=== PATIENT | male | born 1955 | race African-American/Black ===

== ENCOUNTER 2017-02-05 09:26 | Emergency (ER) | payer SELFPAY ==
[~2017-02-05] VITALS: Ht 170.2 cm; Wt 90.6 kg
[2017-02-05 09:32] VITALS: Ht 170.2 cm; Wt 90.6 kg
== END 2017-02-05 10:26 | disposition left against medical advice (07) ==
LOC: E/R 09:26
DX: Z53.21 Procedure and treatment not carried out due to patient leaving prior to being seen by health care provider (principal)

== ENCOUNTER 2017-02-18 09:56 | Inpatient (IN) | END 2017-02-22 19:01 | disposition home health service (06) | DRG 280 ==

== ENCOUNTER 2017-02-26 01:21 | Inpatient (IN) | END 2017-03-01 14:41 | disposition home or self-care (01) | DRG 291 ==

== ENCOUNTER 2017-08-11 09:40 | Emergency (ER) | END 2017-08-11 13:38 | disposition home or self-care (01) ==

== ENCOUNTER 2018-06-26 18:50 | Inpatient (IN) | payer OTHER, MEDICAID ==
[~2018-06-26] VITALS: Ht 177.8 cm; Wt 99.0 kg
[~2018-06-26 18:50] MED LIST: ALBU18HF INHALATION; AMLO5TAB4 PO; ATOR10TA65 PO; ATOR40TA68 PO; BENA10TA4 PO; DOCU100T PO; DOXA4TAB3 PO; FAMO-96 PO; FENO54TA7 PO; FINA5TAB4 PO; FLUT16SP17 NASAL; FURO40TA4 PO; GABA300S PO; GLIM2TAB PO; HYDR-3601 PO; HYDR-3672 PO; IPRA3AMP29 HHN; LATA2.5D2 BOTH EYES; LEVO500T48 PO; LORA10TA3 PO; LORA1TAB PO; MECL-77 PO; METO-319 PO; NITR0.4T39 SL; PARO-2 PO; PRED20TA PO; TAMS-14 PO; TRAZ150T65 PO
[2018-06-26 19:00] VITALS: Ht 177.8 cm; Wt 99.0 kg
--- NOTE | 2018-06-26 19:23 | ERD ---
ER Documentation Chief Complaint Chief Complaint PT BIB RA FOR EVAL OF DIFFICULTY SPEAKING. LWKT 1400. HX OF CVA W RT WKNESS HPI This is a 62-year-old male who presents with dysarthria since about 2 PM this afternoon. He has a history of prior stroke, which affected his right upper extremity, and resulted in speech changes. His primary concern today was his dysarthria, he has not had any chest pain or shortness of breath, no other neurologic deficit that he has noted, no fever. ROS All systems reviewed and are negative except as per history of present illness. Medications Home Meds Reported Medications Trazodone Hcl* (Trazodone Hcl*) 100 Mg Tablet, 100 MG PO QHS PRN for NEEDED, #30 TAB 06/26/18 Paroxetine Hcl* (Paxil*) 20 Mg Tablet, 20 MG PO DAILY, TAB 06/26/18 Nitroglycerin* (Nitroglycerin* SL) 0.4 Mg Tab.subl, 0.4 MG SL Q5MIN PRN for CHEST PAIN, BOTTLE 06/26/18 Metformin Hcl* (Metformin Hcl*) 500 Mg Tablet, 500 MG PO WITH BREAKFAST DINNE, #60 TAB 06/26/18 Lorazepam* (Lorazepam*) 1 Mg Tablet, 1 MG PO HS PRN for NEEDED, #30 TAB 06/26/18 Loratadine* (Loratadine*) 10 Mg Tablet, 10 MG PO DAILY, #30 TAB 06/26/18 Furosemide* (Furosemide*) 40 Mg Tablet, 40 MG PO DAILY, TAB 06/26/18 Hydralazine Hcl* (Hydralazine Hcl*) 25 Mg Tab, 25 MG PO Q8, #90 TAB 06/26/18 Gabapentin* (Gabapentin*) 300 Mg Capsule, 300 MG PO TID, #90 CAP 06/26/18 Tamsulosin Hcl* (Flomax*) 0.4 Mg Cap.er.24h, 0.4 MG PO HS, CAP 06/26/18 Doxazosin Mesylate* (Doxazosin Mesylate*) 8 Mg Tablet, 8 MG PO HS, TAB 06/26/18 Carvedilol* (Carvedilol*) 25 Mg Tablet, 25 MG PO BID, #60 TAB 06/26/18 Benazepril Hcl* (Benazepril Hcl*) 20 Mg Tablet, 20 MG PO BID, #60 TAB 5/8/19 Atorvastatin Calcium (Atorvastatin Calcium) 10 Mg Tablet, 10 MG PO QHS, #30 TAB 06/26/18 Aspirin* (Aspirin* EC) 81 Mg Tablet.dr, 81 MG PO DAILY, TAB 06/26/18 Amlodipine Besylate* (Amlodipine Besylate*) 10 Mg Tablet, 10 MG PO DAILY, #30 TAB 06/26/18 Ipratropium-Albuterol (Ipratropium-Albuterol) 0.5-3 Mg/3 Ml Ampul.neb, 3 ML INHALATION Q6, #30 VIAL 06/26/18 Discontinued Reported Medications Doxazosin Mesylate* (Doxazosin Mesylate*) 4 Mg Tablet, 4 MG PO HS, TAB 02/26/17 Benazepril Hcl* (Benazepril Hcl*) 10 Mg Tablet, 10 MG PO DAILY, #30 TAB 02/26/17 Amlodipine Besylate* (Norvasc*) 5 Mg Tablet, 5 MG PO BID, TAB 02/26/17 Atorvastatin Calcium (Atorvastatin Calcium) 10 Mg Tablet, 10 MG PO QHS, #30 TAB 02/26/17 Albuterol Sulfate* (Ventolin HFA*) 18 Gm Hfa.aer.ad, 2 PUFF INHALATION Q6H PRN for WHEEZING AND SOB, #1 INHALER 02/18/17 Trazodone Hcl* (Trazodone Hcl*) 150 Mg Tablet, 150 MG PO QHS, #30 TAB 02/18/17 Tamsulosin Hcl* (Flomax*) 0.4 Mg Cap.er.24h, 0.4 MG PO HS, CAP 02/18/17 Paroxetine Hcl* (Paxil*) 20 Mg Tablet, 20 MG PO DAILY, TAB 02/18/17 Loratadine* (Loratadine*) 10 Mg Tablet, 10 MG PO DAILY, #30 TAB 02/18/17 Latanoprost (Latanoprost) 2.5 Ml Drops, 1 DROP BOTH EYES QHS, #1 BOTTLE 02/18/17 Glimepiride* (Glimepiride*) 2 Mg Tablet, 2 MG PO WITH BREAKFAST DINNE, TAB 02/18/17 Fluticasone Propionate* (Fluticasone Propionate* Nasal) 50 Mcg/[place] - 16 Gm [place].susp, 2 SPRAYS NASAL DAILY, #1 BOTTLE TO EACH NOSTRIL 02/18/17 Finasteride* (Finasteride*) 5 Mg Tablet, 5 MG PO QHS, TAB 08/15/16 Fenofibrate, Micronized (Fenofibrate) 54 Mg Tablet, 54 MG PO DAILY, TAB 08/15/16 Docusate Sodium* (Dok*) 100 Mg Tablet, 100 MG PO DAILY, #30 CAP 08/15/16 Meclizine Hcl* (Meclizine Hcl*) 25 Mg Tablet, 25 MG PO DAILY PRN for DIZZINESS, TAB 08/15/16 Discontinued Scripts Levofloxacin* (Levaquin*) 500 Mg Tablet, 500 MG PO DAILY@06 for 10 Days, TAB Prov:LETY SANTANA MD 10/29/17 Prednisone* (Prednisone*) 20 Mg Tab, 20 MG PO DAILY for 10 Days, TAB Prov:LETY SANTANA MD 10/29/17 Famotidine* (Pepcid*) 20 Mg Tablet, 20 MG PO BID, #60 TAB Prov:FARHANA BROWN MD 03/01/17 Hydrocodone Bit-Acetaminophen (Hydrocodone Bit-APAP) 5-325MG Tablet, 1 TAB PO Q6H PRN for MODERATE PAIN LEVEL 4-6 for 7 Days, TAB Prov:FARHANA BROWN MD 03/01/17 Hydralazine Hcl* (Apresoline*) 50 Mg Tab, 100 MG PO Q8 for 28 Days, TAB Prov:FARHANA BROWN MD 03/01/17 Ipratropium-Albuterol (Ipratropium-Albuterol) 0.5-3 Mg/3 Ml Ampul.neb, 3 ML HHN Q6H RESP THERAPY PRN for SHORTNESS OF BREATH for 28 Days Prov:FARHANA BROWN MD 03/01/17 Lorazepam* (Lorazepam*) 1 Mg Tablet, 1 MG PO DAILY PRN for ANXIETY for 14 Days, #30 TAB Prov:FARHANA BROWN MD 03/01/17 Furosemide (Lasix) 40 Mg Tab, 40 MG PO DAILY for 30 Days, TAB Prov:FARHANA BROWN MD 03/01/17 Gabapentin (GABAPENTIN) 300 Mg/6 Ml Solution, 300 MG PO TID for 30 Days Prov:LETY SANTANA MD 02/22/17 Metoprolol Succinate* (Toprol XL*) 50 Mg Tab.er.24h, 50 MG PO DAILY for 30 Days Prov:LETY SANTANA MD 02/22/17 Atorvastatin* (Atorvastatin*) 40 Mg Tablet, 40 MG PO HS for 30 Days, TAB Prov:LETY SANTANA MD 02/22/17 Nitroglycerin* (Nitrostat*) 0.4 Mg Tab.subl, 1 TAB SL Q5M PRN for ANGINA for 28 Days Prov:FARHANA BROWN MD 08/20/16 Allergies Allergies: Coded Allergies: No Known Drug Allergies (Unverified Allergy, Unknown, 06/26/18) PMhx/Soc History of Surgery: No Anesthesia Reaction: No Hx Neurological Disorder: Yes (Stroke) Hx Respiratory Disorders: Yes (COPD, KAYKAY) Hx Cardiac Disorders: Yes (HTN, HLD, CHF, ) Hx Psychiatric Problems: Yes (Anxiety) Hx Miscellaneous Medical Probl: No Hx Alcohol Use: No Hx Substance Use: No Hx Tobacco Use: Yes Smoking Status: Former smoker Physical Exam Vitals Vital Signs Date Temp Pulse Resp B/P (MAP) Pulse Ox O2 O2 Flow FiO2 Time Delivery Rate 06/26/18 78 20 118/78 99 Nasal 2.0 22:11 (91) Cannula 06/26/18 70 19 154/94 98 Nasal 2.0 20:02 (114) Cannula 06/26/18 Nasal 2 19:38 Cannula 06/26/18 Nasal 2.0 19:08 Cannula 06/26/18 96.9 76 18 154/70 97 19:00 (98) Physical Exam Const: Patient appears acutely distressed, is awake and alert Head: Atraumatic Eyes: Normal Conjunctiva ENT: Normal External Ears, Nose and Mouth. Neck: Full range of motion. No meningismus. Resp: Clear to auscultation bilaterally Cardio: Regular rate and rhythm, no murmurs Abd: Soft, non tender, non distended. Normal bowel sounds Skin: No petechiae or rashes Back: No midline or flank tenderness Ext: No cyanosis, or edema Neur: Speech is slurred, his right upper extremity is held in a flexed position, he has equal bilateral strength in his lower extremities, sensation is intact to light touch distally, over his left upper extremity as well as his lower extremities. Psych: Normal Mood and Affect Result Diagram: 06/26/18185306/26/181853 Results 24 hrs Laboratory Tests Test 06/26/18 18:54 06/26/18 19:43 06/26/18 22:57 White Blood Count 5.1 10^3/ul Red Blood Count 3.64 10^6/ul Hemoglobin 10.1 g/dl Hematocrit 31.9 % Mean Corpuscular Volume 87.6 fl Mean Corpuscular Hemoglobin 27.7 pg Mean Corpuscular 31.7 g/dl Hemoglobin Concent Red Cell Distribution Width 14.2 % Platelet Count 220 10^3/UL Mean Platelet Volume 12.0 fl Immature Granulocytes % 0.200 % Neutrophils % 65.1 % Lymphocytes % 18.2 % Monocytes % 12.0 % Eosinophils % 4.1 % Basophils % 0.4 % Nucleated Red Blood Cells % 0.4 /100WBC Immature Granulocytes # 0.010 10^3/ul Neutrophils # 3.3 10^3/ul Lymphocytes # 0.9 10^3/ul Monocytes # 0.6 10^3/ul Eosinophils # 0.2 10^3/ul Basophils # 0.0 10^3/ul Nucleated Red Blood Cells # 0.0 10^3/ul Prothrombin Time 13.3 Sec Prothrombin Time Ratio 1.0 INR International 1.00 Normalized Ratio Activated Partial Thromboplast 36.2 Sec Time Sodium Level 142 mmol/L Potassium Level 3.3 mmol/L Chloride Level 104 mmol/L Carbon Dioxide Level 31 mmol/L Anion Gap 7 Blood Urea Nitrogen 13 mg/dl Creatinine 1.29 mg/dl Est Glomerular Filtrat > 60 mL/min Rate mL/min Glucose Level 229 mg/dl Bedside Glucose 243 mg/dL Hemoglobin A1c 5.7 % Calcium Level 9.0 mg/dl Creatine Kinase 77 IU/L 71 IU/L Creatine Kinase Index 1.5 1.6 Creatinine Kinase MB (Mass) 1.16 ng/ml 1.14 ng/ml Troponin I 0.014 ng/ml 0.014 ng/ml Triglycerides Level 99 mg/dl Cholesterol Level 126 mg/dl LDL Cholesterol, Calculated 69 mg/dl HDL Cholesterol 37 mg/dl Cholesterol/HDL Ratio 3.4 RATIO Ethyl Alcohol Level < 10.0 mg/dl Urine Color STRAW Urine Clarity CLEAR Urine pH 6.0 Urine Specific [place] 1.029 Urine Ketones NEGATIVE mg/dL Urine Nitrite NEGATIVE mg/dL Urine Bilirubin NEGATIVE mg/dL Urine Urobilinogen NEGATIVE mg/dL Urine Leukocyte Esterase NEGATIVE Basilio/ul Urine Hemoglobin NEGATIVE mg/dL Urine Glucose 2+ mg/dL Urine Total Protein NEGATIVE mg/dl Urine Opiates Screen Negative Urine Barbiturates Negative Urine Amphetamines Screen Negative Urine Benzodiazepines Screen Negative Urine Cocaine Screen Negative Urine Cannabinoids Negative Current Medications Medications Dose Sig/Alicia Start Time Status Last (Trade) Ordered Route PRN Stop Time Admin Dose Reason Admin Amlodipine 10 mg DAILY PO 06/27/18 Besylate 09:00 (Norvasc) Aspirin 81 mg DAILY PO 06/27/18 (Halfprin) 09:00 10 mg QHS PO 06/27/18 Atorvastatin 21:00 Calcium (Lipitor) Benazepril 20 mg BID PO 06/27/18 HCl 09:00 (Lotensin) Carvedilol 25 mg BID PO 06/27/18 (Coreg) 09:00 Doxazosin 8 mg HS PO 06/27/18 Mesylate 21:00 (Cardura) Furosemide 40 mg DAILY PO 06/27/18 (Lasix) 09:00 Gabapentin 300 mg TID PO 06/27/18 (Neurontin) 09:00 Hydralazine 25 mg Q8 PO 06/27/18 HCl 06:00 (Apresoline) Albuterol/ 3 ml Q6H RESP 06/27/18 Ipratropium THERAPY INH 02:00 (Duoneb) Loratadine 10 mg DAILY PO 06/27/18 (Claritin) 09:00 Lorazepam 1 mg HS PRN PO 06/26/18 (Ativan) NEEDED 22:30 Metformin 500 mg WITH 06/27/18 HCl BREAKFAST 08:00 (Glucophage) DINNE PO 0.4 tab [id number] 06/26/18 Nitroglycerin PRN SL 22:30 CHEST PAIN (Nitroglyceri n (Sl Tab) 0.4 Mg) Paroxetine 20 mg DAILY PO 06/27/18 HCl (Paxil) 09:00 Tamsulosin 0.4 mg HS PO 06/27/18 HCl 21:00 (Flomax) Trazodone 100 mg QHS PRN 06/26/18 HCl PO NEEDED 22:30 (Desyrel) Potassium 1,000 ml @ Q24H IV 06/26/18 Chloride/Dext 40 mls/hr 22:34 stuart/ Sod Cl IV Flush 3 ml PER 06/26/18 (NS 3 ml) PROTOCOL IV 23:00 Ondansetron 4 mg Q6H PRN 06/26/18 HCl (Zofran IV 23:00 Inj) NAUSEA/VOMITI NG 650 mg Q6H PRN 06/26/18 Acetaminophen PO .PAIN 1-3 23:00 (Tylenol OR TEMP Tab) 650 mg Q6H PRN 06/26/18 Acetaminophen SC .PAIN 1-3 23:00 (Tylenol OR TEMP Supp) Docusate 100 mg Q12H PRN 06/26/18 Sodium PO 23:00 (Colace) .CONSTIPATION Magnesium 30 ml DAILY PRN 06/26/18 Hydroxide PO 23:00 (Milk Of Mag) .CONSTIPATION Bisacodyl 5 mg DAILY PRN 06/26/18 (Dulcolax) PO 23:00 .CONSTIPATION 40 mg DAILY@06 06/27/18 Pantoprazole IV 06:00 (Protonix Iv) Procedures/MDM This is a 62-year-old male who presents for evaluation of increased right upper extremity weakness, as well as slurred speech. Patient's last well-known time was about 2 PM, this he presented about 4 hours and 50 minutes after onset of symptoms. Code stroke was called immediately upon arrival. 7:20 PM: Spoke with tele-stroke, patient would not be an IV TPA candidate given timing, his CTA is currently pending. 8 PM: Patient CT brain, showed decreased density over the right temporal lobe, CTA did not show any acute findings. Tele-stroke recommendation was for admission with MRI and stroke work-up. Patient symptoms appear stable, at this time, and his labs are otherwise overall unremarkable. He had no evidence of infection, and did not complain of any pain. He will be admitted to telemetry Accepting Care Team: Current data and ongoing care discussed. Primary: Josiah Consulting: Telestroke Outstanding Data: none Critical Care Time: 35 minutes Treatments/Evaluations: Close monitoring and treatment of unstable vital signs, cardiorespiratory, and neurologic status, while maintaining tight balance of fluid, respiratory, and cardiac interventions. This time includes discussing the case with the patient and the patient's family. This time does not include all procedures stated elsewhere in this record. This time also includes reviewing ol d records, labs and radiological studies. This time includes examining and re- examining the patient. Additionally, this time also includes arranging care with admitting and consulting physicians. Departure Diagnosis: Primary Impression: Acute weakness Additional Impression: Dysarthria Condition: Stable ALEXA LE MD June 26, 2018 19:23
--- NOTE | 2018-06-26 19:35 | STROKE ---
Date/Time of Note Date/Time of Note DATE: 06/26/18 TIME: 19:34 Patient Information General Patient location: emergency Arrival Date Age 62 Gender male Weight 99 kg POC Glucose Glucose Result Bedside Glucose - 72 Hours Test 06/26/18 18:54 Bedside Glucose 243 mg/dL (70-220) H Vital Signs Vital Signs Vital Signs Date Temp Pulse Resp B/P (MAP) Pulse Ox O2 O2 Flow FiO2 Time Delivery Rate 06/26/18 96.9 76 18 154/70 97 19:00 (98) Patient History Current Medications Allergies: Coded Allergies: No Known Drug Allergies (Unverified Allergy, Unknown, 10/25/17) Labs Coagulation Labs: Coagulation Test 06/26/18 18:54 Activated Partial Thromboplast Time 36.2 Sec (23.0-35.0) History & Physical History of Present Illness 62 M PMH stroke with residual right hemiparesis LKW 1400 PST with slurred speech NIH Stroke Scale NIH Stroke Scale [id number] Total Score: [id number] Date/Time Recorded DATE: 06/26/18 TIME: 19:34 Submitted By Albert Stoll t-PA Imaging Review Date/Time Imaging Reviewed DATE: 06/26/18 TIME: 19:34 t-PA Administration Recommendation: No Weight 99 kg Recommedation submitted by Albert Stoll Reason t-PA not Recommended Not in time window Recommendations Recommendation 62 M with chronic right hemiparesis from prior stroke and new dysarthria today as well as reported new right hemianesthesia. Not in tPA window. No new LVO suspected but CTA pending already. NCHCT read by local Radiology as right temporal hypodensity of unknown chronicity, possible new stroke. - F/u pending CTA read - MRI Brain to rule-out new stroke in setting of right temporal hypodensity of unknown chronicity - If new stroke on MRI Brain needs full stroke studies: TTE with bubble, blood cultures, telemetry, EKG, LDL, A1c, SP, PT, OT. Further testing per these initial results/evaluations. - Perform bedside swallow testing in ED and load with Plavix 600 mg PO if passes. Would continue ASA at 81 mg PO QD and Plavix at 75 mg PO QD starting tomorrow. Duration of dual-antiplatelet therapy per local Neurology team - Frequent neuro checks per protocol - Strict normonatremia, normothermia, normoglycemia - Permissive SBP to 180 for first 24 hours during stroke work-up - Please consult local Neurologist to guide further recs ALBERT STOLL MD June 26, 2018 19:35
[2018-06-26] MEDS ORDERED: IPRA3AMP29 INHALATION (19:51)
[2018-06-26] MEDS ORDERED: AMLO-147 PO (19:51)
[2018-06-26] MEDS ORDERED: ASPI-817 PO (19:52)
[2018-06-26] MEDS ORDERED: ATOR10TA65 PO (19:53)
[2018-06-26] MEDS ORDERED: BENA20TA4 PO (19:54)
[2018-06-26] MEDS ORDERED: CARV25TA79 PO (19:54)
[2018-06-26] MEDS ORDERED: GABA300C16 PO (19:55)
[2018-06-26] MEDS ORDERED: DOXA8TAB65 PO (19:55)
[2018-06-26] MEDS ORDERED: TAMS-14 PO (19:55)
[2018-06-26] MEDS ORDERED: HYDR-3671 PO (19:56)
[2018-06-26] MEDS ORDERED: FURO40TA4 PO (19:56)
[2018-06-26] MEDS ORDERED: LORA10TA3 PO (19:56)
[2018-06-26] MEDS ORDERED: LORA1TAB PO (19:57)
[2018-06-26] MEDS ORDERED: METF500T24 PO (19:58)
[2018-06-26] MEDS ORDERED: NITR0.4T32 SL (19:58)
[2018-06-26] MEDS ORDERED: PARO-2 PO (19:58)
[2018-06-26] MEDS ORDERED: TRA100 PO (19:59)
[2018-06-26] MEDS ORDERED: LORAZEPAM 1 MG TAB PO PRN (22:30)
[2018-06-26] MEDS ORDERED: NITROGLYCERIN (SL) 0.4 MG TAB SL PRN (22:30)
[2018-06-26] MEDS ORDERED: BISACODYL (EC) 5 MG TAB PO PRN (23:00)
[2018-06-26] MEDS ORDERED: ACETAMINOPHEN 650 MG SUPP PR PRN (23:00)
[2018-06-26] MEDS ORDERED: ACETAMINOPHEN 325 MG TAB PO PRN (23:00)
[2018-06-26] MEDS ORDERED: NACL 0.9% 3 ML SYG IV SCH (23:00)
[2018-06-26] MEDS ORDERED: ONDANSETRON 4 MG INJ IV PRN (23:00)
[2018-06-26] MEDS ORDERED: MAGNESIUM HYDROXIDE 30ML CUP PO PRN (23:00)
[2018-06-26] MEDS ORDERED: DOCUSATE SODIUM 100 MG CAP PO PRN (23:00)
[2018-06-27] VITALS (12 sets, daily range): BP systolic 123–164; BP diastolic 74–80; PULSE 43–74; RESP 18–22
[2018-06-27] MEDS: ALBUTEROL/IPRATROPIUM (NEB) 3 ML AMP INH SCH ×4 (03:52→19:13)
[2018-06-27] MEDS ORDERED: PANTOPRAZOLE 40 MG INJ IV SCH (06:00)
[2018-06-27] MEDS: D5W-0.45 NACL + KCL 20 MEQ 1,000 ML IV SCH ×2 (06:23→22:34)
[2018-06-27] MEDS ORDERED: metFORMIN 500 MG TAB PO SCH (08:00)
[2018-06-27] MEDS: ASPIRIN (EC) 81 MG TAB PO SCH (09:44)
[2018-06-27] MEDS: AMLODIPINE 10 MG TAB PO SCH (09:44)
[2018-06-27] MEDS: BENAZEPRIL 20 MG TAB PO SCH ×2 (09:45→20:46)
[2018-06-27] MEDS: LORATADINE 10 MG TAB PO SCH (09:45)
[2018-06-27] MEDS: FUROSEMIDE 40 MG TAB PO SCH (09:45)
[2018-06-27] MEDS: GABAPENTIN 300 MG CAP PO SCH ×3 (09:45→20:46)
[2018-06-27] MEDS: PAROXETINE 20 MG TAB PO SCH (09:45)
--- NOTE | 2018-06-27 14:35 | QN ---
Documentation Comment pt seen and examined LETY SANTANA MD June 27, 2018 14:35
[2018-06-27] MEDS ORDERED: POLYETHYLENE GLYCOL 17 GM PACKET PO PRN (15:00)
[2018-06-27] MEDS: DOCUSATE SODIUM 100 MG CAP PO SCH ×2 (15:03→20:47)
--- NOTE | 2018-06-27 15:56 | CONS ---
Assessment/Plan Assessment/Plan Hospital Course 62 yo M with multiple cerebrovascular risk factors who presents for evaluation of dysarthria x 1 day... for which neurology is consulted. CTH is most notable for an age indeterminate R temporal lobe infarct as well as chronic BL basal ganglia and thalamic lacunar infarcts. CTA H/N is notable for generalized intracranial atherosclerosis LDL 78 UDS negative P: Await MRI brain for further characterization ASA/Lipitor for secondary stroke prevention Await echo Add ESR, RPR BP and other medical management per primary PT/OT/ST as necessary Will follow clinically, to recommend neurologic studies, as necessary Consultation Date/Type/Reason Admit Date/Time June 26, 2018 at 20:19 Type of Consult Neurology Reason for Consultation slurred speech/ R hemiparesis Requesting Provider: LETY SANTANA MD Date/Time of Note DATE: 06/27/18 TIME: 15:56 Hx of Present Illness 62 yo M with hx of CVA, HTN, DM, and multiple other comorbidities who presented to the ED for evaluation of slurred speech. History was obtained from pt and chart review. The pt endorses difficulty speaking, headache and dizziness. Denies new weakness or other focal sx at this time. It is elsewhere noted: REASON FOR ADMISSION: Slurred speech and falling back. HISTORY OF PRESENTING ILLNESS: This is a 62-year-old male with a past medical history of COPD, CHF, hypertension, diastolic dysfunction, hyperlipidemia, diabetes, glaucoma, history of multiple admissions in the past secondary to COPD, history of strokes x2, presented to the emergency department after he called the paramedics as he was noted to have slurred speech. According to the patient, he has history of prior stroke. He has some residual weakness in the right upper and lower extremity. For the past 1 week, he has noted that every time he was trying to get up, he was falling backward. Yesterday, he tried to do the same thing and then he fell back. His daughter checked up on him and by the time she came to see him, he already called paramedics. According to the patient, he has noticed that he started having slurred speech around 2:00 p.m. and came to the emergency department. The patient was having some weakness of the right arm and leg. According to the patient, he has been only taking aspirin every other day due to his nosebleeds. On arrival to ED, temperature was 96.9, pulse 76, respirations 18, blood pressure 154/70. Potassium of 3.3, BUN of 13, creatinine 1.29, hemoglobin 10.1, white blood cell count 5.1, platelet count 220. Since the patient came 4 hours late, he was not considered TPA candidate. The patient had CT of the head that showed possible acute subacute infarcts in the anterior right temporal lobe, chronic bilateral cerebral microvascular ischemic diseases, old bilateral anterior basal ganglia, bilateral thalamus lacunar infarcts. The patient also had a CT angio that s howed no CT evidence of aneurysm, dissection or flow limiting stenosis, moderate bilateral cavernous and supraclinoid ICA narrowing, focal stenosis of right and left intracranial vertebral arteries, more proximal right cervical ICA narrowing, large heterogeneous hypodense nodule measuring at 3 cm. The patient also had a chest x-ray that showed cardiomegaly and mild pulmonary congestion and the patient was admitted for further management. negative unless noted otherwise in HPI Exam/Review of Systems Exam Vitals Vital Signs Date Temp Pulse Resp B/P (MAP) Pulse Ox O2 O2 Flow FiO2 Time Delivery Rate 06/27/18 61 15 99 Nasal 14:24 Cannula 06/27/18 0.0 14:21 06/27/18 98.3 150/74 11:26 (99) Exam PE: Gen Appearance: No Apparent Distress HEENT: Normocephalic Cardiovascular: Regular rate Lungs: Clear bilaterally Abdomen: Soft Extremities: Dry NE: The patient was alert and oriented. Speech was dysarthric. Language was normal. Fund of knowledge was normal. Pupils were equal and reactive to light. There was no afferent pupillary defect. Visual gomez were full. Funduscopic examination was limited. Extra-ocular movements were full. Ptosis was absent. There was no nystagmus. Facial sensation was normal. Face was symmetric with normal strength. Hearing was intact. Palate movements were normal. Neck strength was normal. There was normal tongue bulk and speed of movement. Tone was normal. Muscle bulk was normal. I did not see fasciculations. Arms and legs were mildly weak on the R. Vibration sensation was diminished on the R. Temperature and pinprick sensation was normal. Rapid alternating movements were normal. There was no dysmetria. There was no intention tremor. Gait was deferred due to bedrest. Arm and leg reflexes were 2+ and symmetric. Jones's sign was absent. Plantar responses were flexor. Results Result Diagram: 06/27/18 0518 06/27/18 0518 Results 24hrs Laboratory Tests Test 06/26/18 18:54 06/26/18 19:43 06/26/18 22:57 06/27/18 05:18 White Blood Count 5.1 # 5.0 Red Blood Count 3.64 L 3.71 L Hemoglobin 10.1 L 10.2 L Hematocrit 31.9 L 32.4 L Mean Corpuscular Volume 87.6 87.3 Mean Corpuscular 27.7 L 27.5 L Hemoglobin Mean Corpuscular 31.7 L 31.5 L Hemoglobin Concent Red Cell Distribution 14.2 14.3 Width Platelet Count 220 212 Mean Platelet Volume 12.0 H 11.6 H Immature Granulocytes % 0.200 0.400 Neutrophils % 65.1 63.0 Lymphocytes % 18.2 18.3 Monocytes % 12.0 H 13.1 H Eosinophils % 4.1 4.8 Basophils % 0.4 0.4 Nucleated Red Blood 0.4 H 0.0 Cells % Immature Granulocytes # 0.010 0.020 Neutrophils # 3.3 3.1 Lymphocytes # 0.9 0.9 Monocytes # 0.6 0.7 Eosinophils # 0.2 0.2 Basophils # 0.0 0.0 Nucleated Red Blood 0.0 0.0 Cells # Prothrombin Time 13.3 Prothrombin Time Ratio 1.0 INR International 1.00 Normalized Ratio Activated 36.2 H Partial Thromboplast Time Sodium Level 142 146 H Potassium Level 3.3 L 3.6 Chloride Level 104 107 Carbon Dioxide Level 31 33 H Anion Gap 7 6 Blood Urea Nitrogen 13 13 Creatinine 1.29 H 1.30 H Est Glomerular Filtrat > 60 > 60 Rate mL/min Glucose Level 229 H 74 # Bedside Glucose 243 H Hemoglobin A1c 5.7 Calcium Level 9.0 9.2 Creatine Kinase 77 71 66 Creatine Kinase Index 1.5 1.6 1.5 Creatinine Kinase MB 1.16 1.14 1.00 (Mass) Troponin I 0.014 0.014 0.017 Triglycerides Level 99 55 Cholesterol Level 126 125 LDL Cholesterol, 69 78 Calculated HDL Cholesterol 37 36 Cholesterol/HDL Ratio 3.4 3.4 Ethyl Alcohol Level < 10.0 H Urine Color STRAW Urine Clarity CLEAR Urine pH 6.0 Urine Specific Enochs 1.029 Urine Ketones NEGATIVE Urine Nitrite NEGATIVE Urine Bilirubin NEGATIVE Urine Urobilinogen NEGATIVE Urine Leukocyte Esterase NEGATIVE Urine Hemoglobin NEGATIVE Urine Glucose 2+ H Urine Total Protein NEGATIVE Urine Opiates Screen Negative Urine Barbiturates Negative Urine Amphetamines Negative Screen Urine Benzodiazepines Negative Screen Urine Cocaine Screen Negative Urine Cannabinoids Negative Total Bilirubin 0.4 Direct Bilirubin 0.00 Indirect Bilirubin 0.4 Aspartate Amino 21 Transf (AST/SGOT) Alanine 27 Aminotransferase (ALT/SG PT) Alkaline Phosphatase 72 Total Protein 7.1 Albumin 3.6 Globulin 3.50 H Albumin/Globulin Ratio 1.02 Test 06/27/18 09:44 Bedside Glucose 131 Medications Medication Current Medications Amlodipine Besylate (Norvasc) 10 mg DAILY PO Last administered on 06/27/18 09:44; Admin Dose 10 MG; Start 06/27/18 at 09:00 Aspirin (Halfprin) 81 mg DAILY PO Last administered on 06/27/18 09:44; Admin Dose 81 MG; Start 06/27/18 at 09:00 Atorvastatin Calcium (Lipitor) 10 mg QHS PO ; Start 06/27/18 at 21:00 Benazepril HCl (Lotensin) 20 mg BID PO Last administered on 06/27/18 09:45; Admin Dose 20 MG; Start 06/27/18 at 09:00 Carvedilol (Coreg) 25 mg BID PO Last administered on 06/27/18 09:47; Admin Dose 25 MG; Start 06/27/18 at 09:00 Doxazosin Mesylate (Cardura) 8 mg HS PO ; Start 06/27/18 at 21:00 Furosemide (Lasix) 40 mg DAILY PO Last administered on 06/27/18 09:45; Admin Dose 40 MG; Start 06/27/18 at 09:00 Gabapentin (Neurontin) 300 mg TID PO Last administered on 06/27/18 13:42; Admin Dose 300 MG; Start 06/27/18 at 09:00 Hydralazine HCl (Apresoline) 25 mg Q8 PO Last administered on 06/27/18 13:42; Admin Dose 25 MG; Start 06/27/18 at 06:00 Albuterol/ Ipratropium (Duoneb) 3 ml Q6H RESP THERAPY INH Last administered on 06/27/18 14:21; Admin Dose 3 ML; Start 06/27/18 at 02:00 Loratadine (Claritin) 10 mg DAILY PO Last administered on 06/27/18at 09:45; Admin Dose 10 MG; Start 06/27/18 at 09:00 Lorazepam (Ativan) 1 mg HS PRN PO NEEDED; Start 06/26/18 at 22:30 Nitroglycerin (Nitroglycerin (Sl Tab) 0.4 Mg) 0.4 tab [id number] PRN SL CHEST PAIN; Start 06/26/18 at 22:30 Paroxetine HCl (Paxil) 20 mg DAILY PO Last administered on 06/27/18at 09:45; Admin Dose 20 MG; Start 06/27/18 at 09:00 Tamsulosin HCl (Flomax) 0.4 mg HS PO ; Start 06/27/18 at 21:00 Trazodone HCl (Desyrel) 100 mg QHS PRN PO NEEDED; Start 06/26/18 at 22:30 Potassium Chloride/Dextrose/ Sod Cl 1,000 ml @ 40 mls/hr Q24H IV Last administered on 06/27/18at 06:23; Admin Dose 40 MLS/HR; Start 06/26/18 at 22:34 IV Flush (NS 3 ml) 3 ml PER PROTOCOL IV ; Start 06/26/18 at 23:00 Ondansetron HCl (Zofran Inj) 4 mg Q6H PRN IV NAUSEA/VOMITING; Start 06/26/18 at 23:00 Acetaminophen (Tylenol Tab) 650 mg Q6H PRN PO .PAIN 1-3 OR TEMP; Start 06/26/18 at 23:00 Acetaminophen (Tylenol Supp) 650 mg Q6H PRN ME .PAIN 1-3 OR TEMP; Start 06/26/18 at 23:00 Docusate Sodium (Colace) 100 mg Q12H PRN PO .CONSTIPATION; Start 06/26/18 at 23:00 Magnesium Hydroxide (Milk Of Mag) 30 ml DAILY PRN PO .CONSTIPATION; Start 06/26/18 at 23:00 Bisacodyl (Dulcolax) 5 mg DAILY PRN PO .CONSTIPATION; Start 06/26/18 at 23:00 Pantoprazole (Protonix Iv) 40 mg DAILY@06 IV Last administered on 06/27/18at 06:23; Admin Dose 40 MG; Start 06/27/18 at 06:00 Docusate Sodium (Colace) 100 mg BID PO Last administered on 06/27/18at 15:03; Admin Dose 100 MG; Start 06/27/18 at 15:00 Polyethylene Glycol (Miralax) 17 gm DAILY PRN PO CONSTIPATION; Start 06/27/18 at 15:00 Past Medical History reviewed Home Meds Reported Medications Trazodone Hcl* (Trazodone Hcl*) 100 Mg Tablet, 100 MG PO QHS PRN for NEEDED, #30 TAB 06/26/18 Paroxetine Hcl* (Paxil*) 20 Mg Tablet, 20 MG PO DAILY, TAB 06/26/18 Nitroglycerin* (Nitroglycerin* SL) 0.4 Mg Tab.subl, 0.4 MG SL Q5MIN PRN for CHEST PAIN, BOTTLE 06/26/18 Metformin Hcl* (Metformin Hcl*) 500 Mg Tablet, 500 MG PO WITH BREAKFAST DINNE, #60 TAB 06/26/18 Lorazepam* (Lorazepam*) 1 Mg Tablet, 1 MG PO HS PRN for NEEDED, #30 TAB 06/26/18 Loratadine* (Loratadine*) 10 Mg Tablet, 10 MG PO DAILY, #30 TAB 06/26/18 Furosemide* (Furosemide*) 40 Mg Tablet, 40 MG PO DAILY, TAB 06/26/18 Hydralazine Hcl* (Hydralazine Hcl*) 25 Mg Tab, 25 MG PO Q8, #90 TAB 06/26/18 Gabapentin* (Gabapentin*) 300 Mg Capsule, 300 MG PO TID, #90 CAP 06/26/18 Tamsulosin Hcl* (Flomax*) 0.4 Mg Cap.er.24h, 0.4 MG PO HS, CAP 06/26/18 Doxazosin Mesylate* (Doxazosin Mesylate*) 8 Mg Tablet, 8 MG PO HS, TAB 06/26/18 Carvedilol* (Carvedilol*) 25 Mg Tablet, 25 MG PO BID, #60 TAB 06/26/18 Benazepril Hcl* (Benazepril Hcl*) 20 Mg Tablet, 20 MG PO BID, #60 TAB 06/26/18 Atorvastatin Calcium (Atorvastatin Calcium) 10 Mg Tablet, 10 MG PO QHS, #30 TAB 06/26/18 Aspirin* (Aspirin* EC) 81 Mg Tablet.dr, 81 MG PO DAILY, TAB 06/26/18 Amlodipine Besylate* (Amlodipine Besylate*) 10 Mg Tablet, 10 MG PO DAILY, #30 T AB 06/26/18 Ipratropium-Albuterol (Ipratropium-Albuterol) 0.5-3 Mg/3 Ml Ampul.neb, 3 ML INHALATION Q6, #30 VIAL 06/26/18 Discontinued Reported Medications Doxazosin Mesylate* (Doxazosin Mesylate*) 4 Mg Tablet, 4 MG PO HS, TAB 02/26/17 Benazepril Hcl* (Benazepril Hcl*) 10 Mg Tablet, 10 MG PO DAILY, #30 TAB 02/26/17 Amlodipine Besylate* (Norvasc*) 5 Mg Tablet, 5 MG PO BID, TAB 02/26/17 Atorvastatin Calcium (Atorvastatin Calcium) 10 Mg Tablet, 10 MG PO QHS, #30 TAB 02/26/17 Albuterol Sulfate* (Ventolin HFA*) 18 Gm Hfa.aer.ad, 2 PUFF INHALATION Q6H PRN for WHEEZING AND SOB, #1 INHALER 02/18/17 Trazodone Hcl* (Trazodone Hcl*) 150 Mg Tablet, 150 MG PO QHS, #30 TAB 02/18/17 Tamsulosin Hcl* (Flomax*) 0.4 Mg Cap.er.24h, 0.4 MG PO HS, CAP 02/18/17 Paroxetine Hcl* (Paxil*) 20 Mg Tablet, 20 MG PO DAILY, TAB 02/18/17 Loratadine* (Loratadine*) 10 Mg Tablet, 10 MG PO DAILY, #30 TAB 02/18/17 Latanoprost (Latanoprost) 2.5 Ml Drops, 1 DROP BOTH EYES QHS, #1 BOTTLE 02/18/17 Glimepiride* (Glimepiride*) 2 Mg Tablet, 2 MG PO WITH BREAKFAST DINNE, TAB 02/18/17 Fluticasone Propionate* (Fluticasone Propionate* Nasal) 50 Mcg/Culver - 16 Gm Culver.susp, 2 SPRAYS NASAL DAILY, #1 BOTTLE TO EACH NOSTRIL 02/18/17 Finasteride* (Finasteride*) 5 Mg Tablet, 5 MG PO QHS, TAB 08/15/16 Fenofibrate, Micronized (Fenofibrate) 54 Mg Tablet, 54 MG PO DAILY, TAB 08/15/16 Docusate Sodium* (Dok*) 100 Mg Tablet, 100 MG PO DAILY, #30 CAP 08/15/16 Meclizine Hcl* (Meclizine Hcl*) 25 Mg Tablet, 25 MG PO DAILY PRN for DIZZINESS, TAB 08/15/16 Discontinued Scripts Levofloxacin* (Levaquin*) 500 Mg Tablet, 500 MG PO DAILY@06 for 10 Days, TAB Prov:LETY SANTANA MD 10/29/17 Prednisone* (Prednisone*) 20 Mg Tab, 20 MG PO DAILY for 10 Days, TAB Prov:LETY SANTANA MD 10/29/17 Famotidine* (Pepcid*) 20 Mg Tablet, 20 MG PO BID, #60 TAB Prov:FARHANA BROWN MD 03/01/17 Hydrocodone Bit-Acetaminophen (Hydrocodone Bit-APAP) 5-325MG Tablet, 1 TAB PO Q6H PRN for MODERATE PAIN LEVEL 4-6 for 7 Days, TAB Prov:FARHANA BROWN MD 03/01/17 Hydralazine Hcl* (Apresoline*) 50 Mg Tab, 100 MG PO Q8 for 28 Days, TAB Prov:FARHANA BROWN MD 03/01/17 Ipratropium-Albuterol (Ipratropium-Albuterol) 0.5-3 Mg/3 Ml Ampul.neb, 3 ML HHN Q6H RESP THERAPY PRN for SHORTNESS OF BREATH for 28 Days Prov:FARHANA BROWN MD 03/01/17 Lorazepam* (Lorazepam*) 1 Mg Tablet, 1 MG PO DAILY PRN for ANXIETY for 14 Days, #30 TAB Prov:FARHANA BROWN MD 03/01/17 Furosemide (Lasix) 40 Mg Tab, 40 MG PO DAILY for 30 Days, TAB Prov:FARHANA BROWN MD 03/01/17 Gabapentin (GABAPENTIN) 300 Mg/6 Ml Solution, 300 MG PO TID for 30 Days Prov:LETY SANTANA MD 02/22/17 Metoprolol Succinate* (Toprol XL*) 50 Mg Tab.er.24h, 50 MG PO DAILY for 30 Days Prov:LETY SANTANA MD 02/22/17 Atorvastatin* (Atorvastatin*) 40 Mg Tablet, 40 MG PO HS for 30 Days, TAB Prov:LETY SANTANA MD 02/22/17 Nitroglycerin* (Nitrostat*) 0.4 Mg Tab.subl, 1 TAB SL Q5M PRN for ANGINA for 28 Days Prov:FARHANA BROWN MD 08/20/16 Medications Current Medications Amlodipine Besylate (Norvasc) 10 mg DAILY PO Last administered on 06/27/18 09:44; Admin Dose 10 MG; Start 06/27/18 at 09:00 Aspirin (Halfprin) 81 mg DAILY PO Last administered on 06/27/18 09:44; Admin Dose 81 MG; Start 06/27/18 at 09:00 Atorvastatin Calcium (Lipitor) 10 mg QHS PO ; Start 06/27/18 at 21:00 Benazepril HCl (Lotensin) 20 mg BID PO Last administered on 06/27/18 09:45; Ad min Dose 20 MG; Start 06/27/18 at 09:00 Carvedilol (Coreg) 25 mg BID PO Last administered on 06/27/18 09:47; Admin Dose 25 MG; Start 06/27/18 at 09:00 Doxazosin Mesylate (Cardura) 8 mg HS PO ; Start 06/27/18 at 21:00 Furosemide (Lasix) 40 mg DAILY PO Last administered on 06/27/18 09:45; Admin Dose 40 MG; Start 06/27/18 at 09:00 Gabapentin (Neurontin) 300 mg TID PO Last administered on 06/27/18 13:42; Admin Dose 300 MG; Start 06/27/18 at 09:00 Hydralazine HCl (Apresoline) 25 mg Q8 PO Last administered on 06/27/18 13:42; Admin Dose 25 MG; Start 06/27/18 at 06:00 Albuterol/ Ipratropium (Duoneb) 3 ml Q6H RESP THERAPY INH Last administered on 06/27/18 14:21; Admin Dose 3 ML; Start 06/27/18 at 02:00 Loratadine (Claritin) 10 mg DAILY PO Last administered on 06/27/18 09:45; Admin Dose 10 MG; Start 06/27/18 at 09:00 Lorazepam (Ativan) 1 mg HS PRN PO NEEDED; Start 06/26/18 at 22:30 Nitroglycerin (Nitroglycerin (Sl Tab) 0.4 Mg) 0.4 tab [id number] PRN SL CHEST PAIN; Start 06/26/18 at 22:30 Paroxetine HCl (Paxil) 20 mg DAILY PO Last administered on 06/27/18at 09:45; Admin Dose 20 MG; Start 06/27/18 at 09:00 Tamsulosin HCl (Flomax) 0.4 mg HS PO ; Start 06/27/18 at 21:00 Trazodone HCl (Desyrel) 100 mg QHS PRN PO NEEDED; Start 06/26/18 at 22:30 Potassium Chloride/Dextrose/ Sod Cl 1,000 ml @ 40 mls/hr Q24H IV Last administered on 06/27/18at 06:23; Admin Dose 40 MLS/HR; Start 06/26/18 at 22:34 IV Flush (NS 3 ml) 3 ml PER PROTOCOL IV ; Start 06/26/18 at 23:00 Ondansetron HCl (Zofran Inj) 4 mg Q6H PRN IV NAUSEA/VOMITING; Start 06/26/18 at 23:00 Acetaminophen (Tylenol Tab) 650 mg Q6H PRN PO .PAIN 1-3 OR TEMP; Start 06/26/18 at 23:00 Acetaminophen (Tylenol Supp) 650 mg Q6H PRN ME .PAIN 1-3 OR TEMP; Start 06/26/18 at 23:00 Docusate Sodium (Colace) 100 mg Q12H PRN PO .CONSTIPATION; Start 06/26/18 at 23:00 Magnesium Hydroxide (Milk Of Mag) 30 ml DAILY PRN PO .CONSTIPATION; Start 06/26/18 at 23:00 Bisacodyl (Dulcolax) 5 mg DAILY PRN PO .CONSTIPATION; Start 06/26/18 at 23:00 Pantoprazole (Protonix Iv) 40 mg DAILY@06 IV Last administered on 06/27/18at 06:23; Admin Dose 40 MG; Start 06/27/18 at 06:00 Docusate Sodium (Colace) 100 mg BID PO Last administered on 06/27/18at 15:03; Admin Dose 100 MG; Start 06/27/18 at 15:00 Polyethylene Glycol (Miralax) 17 gm DAILY PRN PO CONSTIPATION; Start 06/27/18 at 15:00 Allergies: Coded Allergies: No Known Drug Allergies (Unverified Allergy, Unknown, 06/26/18) Past Surgical History reviewed Past Surgical Hx: no surgical history Social History reviewed Smoking Status: Never smoker HERIBERTO VIDES NP June 27, 2018 15:56
--- NOTE | 2018-06-27 17:52 | HP ---
DATE OF ADMISSION: 06/26/2018 REASON FOR ADMISSION: Slurred speech and falling back. HISTORY OF PRESENTING ILLNESS: This is a 62-year-old male with a past medical history of COPD, CHF, hypertension, diastolic dysfunction, hyperlipidemia, diabetes, glaucoma, history of multiple admissio ns in the past secondary to COPD, history of strokes x2, presented to the emergency department after he called the paramedics as he was noted to have slurred speech. According to the patient, he has hi story of prior stroke. He has some residual weakness in the right upper and lower extremity. For th e past 1 week, he has noted that every time he was trying to get up, he was falling backward. Yester day, he tried to do the same thing and then he fell back. His daughter checked up on him and by the time she came to see him, he already called paramedics. According to the patient, he has noticed cyn t he started having slurred speech around 2:00 p.m. and came to the emergency department. The patien t was having some weakness of the right arm and leg. According to the patient, he has been only taki ng aspirin every other day due to his nosebleeds. On arrival to ED, temperature was 96.9, pulse 76, respirations 18, blood pressure 154/70. Potassium of 3.3, BUN of 13, creatinine 1.29, hemoglobin 10. 1, white blood cell count 5.1, platelet count 220. Since the patient came 4 hours late, he was not c onsidered TPA candidate. The patient had CT of the head that showed possible acute subacute infarcts in the anterior right temporal lobe, chronic bilateral cerebral microvascular ischemic diseases, old bilateral anterior basal ganglia, bilateral thalamus lacunar infarcts. The patient also had a CT an yenni that showed no CT evidence of aneurysm, dissection or flow limiting stenosis, moderate bilateral cavernous and supraclinoid ICA narrowing, focal stenosis of right and left intracranial vertebral art eries, more proximal right cervical ICA narrowing, large heterogeneous hypodense nodule measuri ng at 3 cm. The patient also had a chest x-ray that showed cardiomegaly and mild pulmonary congestio n and the patient was admitted for further management. PAST MEDICAL HISTORY: 1. Hypertension. 2. Diabetes. 3. Hyperlipidemia. 4. History of prior strokes x2. 5. COPD. 6. CHF. 7. CKD stage III. 8. Obstructive sleep apnea. 9. History of smoking. ALLERGIES: NONE. SOCIAL HISTORY: He was a smoker and stopped smoking a couple of years ago. Denies any alcohol, any recreational drug use. Lives by himself, but the daughter lives very close to him. FAMILY HISTORY: Noncontributory. MEDICATIONS TAKING AT HOME: 1. Aspirin 81 taking every other day. 2. Loratadine 10. 3. Ipratropium. 4. Amlodipine 10. 5. Atorvastatin 10. 6. Benazepril 20 b.i.d. 7. Coreg 25 b.i.d. 8. Doxazosin 8. 9. Hydralazine 25 q.8. 10. Gabapentin 300 t.i.d. 11. Lorazepam 1 mg p.o. bedtime. 12. Paxil 20. 13. Trazodone. 14. Lasix 40. 15. Metformin 500 b.i.d. with breakfast and dinner. REVIEW OF SYSTEMS: The patient had some slurred speech which is resolved, has some weakness of the r ight leg. Denies any abdominal pain, nausea, vomiting, diarrhea. Has been constipated. Denies any urinary symptoms. PHYSICAL EXAMINATION: VITAL SIGNS: Currently, blood pressure 150/74, afebrile, heart rate 59, saturating 99%. GENERAL: The patient is awake, alert, oriented, able to understand and comprehend, answering questio ns appropriately. HEENT: Pupils are equal, round, reactive to light. NECK: Supple. No JVD. HEART: Regular rate and rhythm. LUNGS: Decreased breath sounds bilaterally. ABDOMEN: Positive bowel sounds. EXTREMITIES: No clubbing, cyanosis or edema. NEUROLOGIC: The patient has a residual 4/5 weakness on the right lower extremity. Rest of the stren gth is 5/5. Sensation intact; however somewhat reduced on the right lower extremity. Cranial nerves II through XII are intact. LABORATORY DATA: BUN of 13, creatinine 1.30. White count of 5.1, hemoglobin 10.1, platelet count 22 0. UA is negative. Urine toxicology is negative. DIAGNOSTIC DATA: CT of the head: Subacute to acute infarct involving anterior temporal lobe. ASSESSMENT AND PLAN: This is a 62-year-old male presented with a history of: 1. Falling backwards for past few days with some weakness on the right upper and lower extremity. C T of the head is possible acute subacute infarct involving anterior right temporal lobe. The patient also had a CT angio shows no CT evidence of aneurysm, dissection or flow-limiting stenosis. 2. History of chronic obstructive pulmonary disease. 3. Diabetes. 4. Hypertension. 5. Hyperlipidemia. 6. History of congestive heart failure. 7. Chronic kidney disease stage III. 8. History of anxiety. PLAN: At this period of time, the patient was admitted to tele. The patient is on aspirin, statin. Tele neurology was consulted. Per teleneurology, have blood pressure control with permissive SBP to 180 for the first 24 hours. We will also call inpatient neurology. We will also get echo. Rest of the treatment depends of the patient's hospitalization course. Dictated By: LETY DUFF/SRAVANI Conf#: [id number] DID#: [id number] CC: ROSELINE WATSON; FARHANA BROWN MD;*EndCC*
[2018-06-27] MEDS: DOXAZOSIN 4 MG TAB PO SCH (20:46)
[2018-06-27] MEDS: ATORVASTATIN 10 MG TAB PO SCH (20:46)
[2018-06-27] MEDS: TAMSULOSIN (SR) 0.4 MG CAP PO SCH (20:46)
[2018-06-27] MEDS: traZODone 100 MG TAB PO PRN (22:26)
[2018-06-28] VITALS (13 sets, daily range): BP systolic 113–164; BP diastolic 58–80; PULSE 56–88; RESP 16–24
[2018-06-28] MEDS: ALBUTEROL/IPRATROPIUM (NEB) 3 ML AMP INH SCH ×4 (01:32→19:30)
[2018-06-28] MEDS: PANTOPRAZOLE (EC) 40 MG TAB PO SCH (06:12)
[2018-06-28] MEDS: BENAZEPRIL 20 MG TAB PO SCH ×2 (08:57→21:17)
[2018-06-28] MEDS: DOCUSATE SODIUM 100 MG CAP PO SCH ×2 (08:57→21:16)
[2018-06-28] MEDS: PAROXETINE 20 MG TAB PO SCH (08:57)
[2018-06-28] MEDS: GABAPENTIN 300 MG CAP PO SCH ×3 (08:58→21:18)
[2018-06-28] MEDS: AMLODIPINE 10 MG TAB PO SCH (08:58)
[2018-06-28] MEDS: ASPIRIN (EC) 81 MG TAB PO SCH (08:58)
[2018-06-28] MEDS: FUROSEMIDE 40 MG TAB PO SCH (08:58)
[2018-06-28] MEDS: LORATADINE 10 MG TAB PO SCH (08:58)
--- NOTE | 2018-06-28 12:01 | RADRPT ---
Echocardiogram Report Patient Name: RICARDO CHAUPatient ID: [id number] : 1955 (62y 8m)Study Date: 06/28/2018 7:21:42 AM Gender: MAccession #: [id number] Tech: Lucas Bronson [facility] Location: [facility] Ref.Physician: LETY SANTANA Height(Cm): BSA: Weight(Kg): Quality: AdequateAccount #: Procedures: Echocardiographic Report: Transthoracic echocardiogram with complete 2D, M-Mode, and doppler examination. Indications: Stroke. Measurements: 2D/M Mode Doppler Measurement Value Normal Range Measurement Value Normal Range LVIDd 2D 5.1 [ 4.2 - 5.8 ] cm AV Peak Kendall 1.5 [ 100.0 - 170.0 ] cm/sec LVIDs 2D 3.3 [ 2.5 - 4.0 ] cm AV Peak PG 9.0 [ 2.0 - 9.0 ] mmHg LVPWd 2D 1.2 [ 0.6 - 1.0 ] cm LVOT Peak Kendall 1.3 [ 70.0 - 110.0 ] cm/sec IVSd 2D 1.5 [ 0.6 - 1.0 ] cm LVOT Peak PG 7.0 [ 2.0 - 6.0 ] mmHg AoR Diam 2D 3.5 [ 2.6 - 3.4 ] cm MV E Peak Kendall 0.9 [ 60.0 - 130.0 ] cm/sec EDV 2D 124.0 [ 62.0 - 150.0 ] ml MV A Peak Kendall 0.6 [ 100.0 - 120.0 ] cm/sec ESV 2D 43.5 [ 21.0 - 61.0 ] ml MV E/A 1.3 [ 0.8 - 1.5 ] ratio EF 2D 64.9 [ 52.0 - 72.0 ] percent MV Decel Time 173 [ 104 - 258 ] msec LA Dimen 2D 4.1 [ 3.0 - 4.0 ] cm Lat E` Kendall 0.1 [ 10.0 - 15.0 ] cm/sec Lateral E/E` 7.2 [ 1.0 - 2.0 ] ratio MV E/A 1.3 [ 0.8 - 1.5 ] ratio TR Peak Kendall 2.6 [ 100.0 - 280.0 ] cm/sec TR Peak PG 27.0 mmHg RVSP 30.0 [ 10.0 - 36.0 ] mmHg RA Pressure 3.0 mmHg Findings: Left Ventricle: Normal left ventricular systolic function. Normal left ventricular cavity size. Moderate concentric left ventricular hypertrophy. Ejection fraction is visually estimated at 60 %. Tissue Doppler/Mitral Doppler indices are within normal limits. Right Ventricle: Normal right ventricular size. Normal right ventricular systolic function. Left Atrium: There is mild enlargement of left atrium. Right Atrium: The right atrium is normal in size. Mitral Valve: Normal appearance and function of the mitral valve with trace physiologic regurgitation. Aortic Valve: No significant aortic stenosis or insufficiency. Aortic cusps appear mildly calcified. Tricuspid Valve: Normal appearance of the tricuspid valve. Estimated peak PA systolic pressure 30 mmHg. There is mild tricuspid regurgitation. Pulmonic Valve: Normal pulmonic valve appearance. Pericardium: Normal pericardium with no significant pericardial effusion. Aorta: Normal aortic root. IVC: Normal size and normal respiratory collapse consistent with normal right atrial pressure. Conclusions: Normal left ventricular systolic function. Normal left ventricular cavity size. Moderate concentric left ventricular hypertrophy. Ejection fraction is visually estimated at 60 %. Tissue Doppler/Mitral Doppler indices are within normal limits. Normal appearance and function of the mitral valve with trace physiologic regurgitation. No significant aortic stenosis or insufficiency. Aortic cusps appear mildly calcified. Normal appearance of the tricuspid valve. Estimated peak PA systolic pressure 30 mmHg. There is mild tricuspid regurgitation. Electronically Signed By: Brandon Jaramillo 2018-06-28 12:01:05 PDT
--- NOTE | 2018-06-28 15:15 | PN ---
STEPHANIE BASURTOA 06/28/18 1515: Date/Time of Note Date/Time of Note DATE: 06/28/18 TIME: 15:13 Assessment/Plan VTE Prophylaxis [place] [facility] [place]: 3 SCD applied [place] [facility] [place] SCD contraindicated: low risk/ambulating Pharmacological prophylaxis: NA/contraindicated Pharm contraindication: other (pending result of MRI) Lines/Catheters IV C[facility]ter Type (from [facility] Saline Lock Urinary Cath still in place: No Assessment/Plan Hospital Course 1. Falling backwards for past few days with some weakness on the right upper and lower extremity. CT of the head is possible acute subacute infarct involving anterior right temporal lobe. The patient also had a CT angio shows no CT evidence of aneurysm, dissection or flow-limiting stenosis. 2. History of chronic obstructive pulmonary disease. 3. Diabetes. 4. Hypertension. 5. Hyperlipidemia. 6. History of congestive heart failure. 7. Chronic kidney disease stage III. 8. History of anxiety. 9. Anemia 10. Obesity 11. hypernatremia 12. Metabolic syndrome, Hg A1 C 5.7 Assessment/Plan -tele. -aspirin,, statin. -cardiology sonsult dr Jaramillo. notified -will start Plavix after MRI - neurology was consulted. -echo: 60 %. Normal appearance and function of the mitral valve with trace physiologic regurgitation. -cratine monitor, it is rising -DVT proph -GI proph. Protonix Result Diagram: 06/27/1851706/27/18517 Results 24hrs Laboratory Tests Test 06/28/18 04:54 Erythrocyte Sedimentation Rate 30 H Rapid Plasma Reagin NONREACTIVE Subjective 24 Hr Interval Summary Constitutional: improved Exam/Review of Systems Exam Vitals Vital Signs Date Temp Pulse Resp B/P (MAP) Pulse Ox O2 O2 Flow FiO2 Time Delivery Rate 06/28/18 72 12:56 06/28/18 98.3 20 146/70 98 11:51 (95) 06/28/18 Room Air 03:53 06/27/18 21 19:13 06/27/18 2.0 17:28 Intake and Output 06/27/18 06/27/18 06/28/18 1515:00 23:00 07:00 IntakeIntake Total 1080 ml 1680 ml OutputOutput Total 500 ml 1000 ml BalanceBalance 580 ml 680 ml Constitutional: alert, oriented Eyes: nl conjunctiva Cardiovascular: regular rate and rhythm Gastrointestinal: soft Musculoskeletal: muscle weakness (right side) Results Result Diagram: 06/27/1851706/27/18517 Results 24hrs Laboratory Tests Test 06/28/18 04:54 Erythrocyte Sedimentation Rate 30 H Rapid Plasma Reagin NONREACTIVE Medications Medication Current Medications Amlodipine Besylate (Norvasc) 10 mg DAILY PO Last administered on 06/28/18 08:58; Admin Dose 10 MG; Start 06/27/18 at 09:00 Aspirin (Halfprin) 81 mg DAILY PO Last administered on 06/28/18 08:58; Admin Dose 81 MG; Start 06/27/18 at 09:00 Atorvastatin Calcium (Lipitor) 10 mg QHS PO Last administered on 06/27/18 20:46; Admin Dose 10 MG; Start 06/27/18 at 21:00 Benazepril HCl (Lotensin) 20 mg BID PO Last administered on 06/28/18 08:57; Admin Dose 20 MG; Start 06/27/18 at 09:00 Carvedilol (Coreg) 25 mg BID PO Last administered on 06/28/18 08:58; Admin Dose 25 MG; Start 06/27/18 at 09:00 Doxazosin Mesylate (Cardura) 8 mg HS PO Last administered on 06/27/18 20:46; Admin Dose 8 MG; Start 06/27/18 at 21:00 Furosemide (Lasix) 40 mg DAILY PO Last administered on 06/28/18 08:58; Admin Dose 40 MG; Start 06/27/18 at 09:00 Gabapentin (Neurontin) 300 mg TID PO Last administered on 06/28/18 13:50; Admin Dose 300 MG; Start 06/27/18 at 09:00 Hydralazine HCl (Apresoline) 25 mg Q8 PO Last administered on 06/28/18 13:51; Admin Dose 25 MG; Start 06/27/18 at 06:00 Albuterol/ Ipratropium (Duoneb) 3 ml Q6H RESP THERAPY INH Last administered on 06/28/18 08:46; Admin Dose 3 ML; Start 06/27/18 at 02:00 Loratadine (Claritin) 10 mg DAILY PO Last administered on 5/10/19at 08:58; Admin Dose 10 MG; Start 06/27/18 at 09:00 Lorazepam (Ativan) 1 mg HS PRN PO NEEDED Last administered on 06/28/18 04:16; Admin Dose 1 MG; Start 06/26/18 at 22:30 Nitroglycerin (Nitroglycerin (Sl Tab) 0.4 Mg) 0.4 tab [id number] PRN SL CHEST PAIN; Start 06/26/18 at 22:30 Paroxetine HCl (Paxil) 20 mg DAILY PO Last administered on 06/28/18at 08:57; Admin Dose 20 MG; Start 06/27/18 at 09:00 Tamsulosin HCl (Flomax) 0.4 mg HS PO Last administered on 06/27/18 20:46; Admin Dose 0.4 MG; Start 06/27/18 at 21:00 Trazodone HCl (Desyrel) 100 mg QHS PRN PO NEEDED Last administered on 06/27/18 22:26; Admin Dose 100 MG; Start 06/26/18 at 22:30 Potassium Chloride/Dextrose/ Sod Cl 1,000 ml @ 40 mls/hr Q24H IV Last administered on 06/27/18 06:23; Admin Dose 40 MLS/HR; Start 06/26/18 at 22:34 IV Flush (NS 3 ml) 3 ml PER PROTOCOL IV ; Start 06/26/18 at 23:00 Ondansetron HCl (Zofran Inj) 4 mg Q6H PRN IV NAUSEA/VOMITING; Start 06/26/18 at 23:00 Acetaminophen (Tylenol Tab) 650 mg Q6H PRN PO .PAIN 1-3 OR TEMP Last administered on 06/27/18at 18:41; Admin Dose 650 MG; Start 06/26/18 at 23:00 Acetaminophen (Tylenol Supp) 650 mg Q6H PRN [place] .PAIN 1-3 OR TEMP; Start 06/26/18 at 23:00 Docusate Sodium (Colace) 100 mg Q12H PRN PO .CONSTIPATION; Start 06/26/18 at 23:00 Magnesium Hydroxide (Milk Of Mag) 30 ml DAILY PRN PO .CONSTIPATION; Start 06/26/18 at 23:00 Bisacodyl (Dulcolax) 5 mg DAILY PRN PO .CONSTIPATION Last administered on 5/10/19at 08:57; Admin Dose 5 MG; Start 06/26/18 at 23:00 Docusate Sodium (Colace) 100 mg BID PO Last administered on 06/28/18at 08:57; Admin Dose 100 MG; Start 06/27/18 at 15:00 Polyethylene Glycol (Miralax) 17 gm DAILY PRN PO CONSTIPATION Last administered on 06/27/18at 18:41; Admin Dose 17 GM; Start 06/27/18 at 15:00 Pantoprazole (Protonix Tab) 40 mg DAILY@06 PO Last administered on 06/28/18at 06:12; Admin Dose 40 MG; Start 06/28/18 at 06:00 LETY SANTANA MD 06/28/18 1614: Assessment/Plan Assessment/Plan Assessment/Plan MRI pending PT/OT Seen and exmaiend Result Diagram: 06/27/18 0518 06/27/18 0518 TIKI BASURTO June 28, 2018 15:15 LETY SANTANA MD June 28, 2018 16:14
--- NOTE | 2018-06-28 17:03 | CONS ---
Assessment/Plan Assessment/Plan Hospital Course 62 yo M with multiple cerebrovascular risk factors who presents for evaluation of dysarthria x 1 day... for which neurology is consulted. CTH is most notable for an age indeterminate R temporal lobe infarct as well as chronic BL basal ganglia and thalamic lacunar infarcts. CTA H/N is notable for generalized intracranial atherosclerosis LDL 78, ESR 30, RPR neg UDS negative Echo is most notable for mild LA enlargement P: Await MRI brain for further characterization ASA/Lipitor for secondary stroke prevention BP and other medical management per primary PT/OT/ST as necessary Will follow clinically, to recommend neurologic studies, as necessary Consultation Date/Type/Reason Admit Date/Time June 26, 2018 at 20:19 Type of Consult Neurology Reason for Consultation slurred speech/ R hemiparesis Requesting Provider: LETY SANTANA MD Date/Time of Note DATE: 06/28/18 TIME: 17:02 24 HR Interval Summary Free Text/Dictation Continues acute care. Awaiting MRI Exam Vital Signs Vitals Vital Signs Date Temp Pulse Resp B/P (MAP) Pulse Ox O2 O2 Flow FiO2 Time Delivery Rate 06/28/18 73 16:32 06/28/18 98.3 20 156/80 95 16:25 (105) 06/28/18 21 15:51 06/28/18 Room Air 03:53 06/27/18 2.0 17:28 Intake and Output 06/27/18 06/27/18 06/28/18 1515:00 23:00 07:00 IntakeIntake Total 1080 ml 1680 ml OutputOutput Total 500 ml 1000 ml BalanceBalance 580 ml 680 ml Exam PE: Gen Appearance: No Apparent Distress HEENT: Normocephalic Cardiovascular: Regular rate Lungs: Clear bilaterally Abdomen: Soft Extremities: Dry NE: The patient was alert and oriented. Speech was slightly dysarthric. Language was normal. Fund of knowledge was normal. Pupils were equal and reactive to light. There was no afferent pupillary defect. Visual gomez were full. Funduscopic examination was limited. Extra-ocular movements were full. Ptosis was absent. There was no nystagmus. Facial sensation was normal. Face was symmetric with normal strength. Hearing was intact. Palate movements were normal. Neck strength was normal. There was normal tongue bulk and speed of movement. Tone was normal. Muscle bulk was normal. I did not see fasciculations. Arms and legs were mildly weak on the R, though improved. Vibration sensation was diminished on the R. Temperature and pinprick sensation was normal. Rapid alternating movements were normal. There was no dysmetria. There was no intention tremor. Gait was deferred due to bedrest. Arm and leg reflexes were 2+ and symmetric. Jones's sign was absent. Plantar responses were flexor. HERIBERTO VIDES NP June 28, 2018 17:03
[2018-06-28] MEDS: ATORVASTATIN 10 MG TAB PO SCH (21:16)
[2018-06-28] MEDS: DOXAZOSIN 4 MG TAB PO SCH (21:16)
[2018-06-28] MEDS: TAMSULOSIN (SR) 0.4 MG CAP PO SCH (21:16)
[2018-06-28] MEDS: traZODone 100 MG TAB PO PRN (23:06)
[2018-06-29] VITALS (18 sets, daily range): BP systolic 115–144; BP diastolic 57–73; PULSE 44–76; RESP 20–22
[2018-06-29] MEDS: ALBUTEROL/IPRATROPIUM (NEB) 3 ML AMP INH SCH ×4 (00:50→20:00)
[2018-06-29] MEDS: PANTOPRAZOLE (EC) 40 MG TAB PO SCH (05:56)
[2018-06-29] MEDS ORDERED: LATA2.5D2 BOTH EYES (06:04)
[2018-06-29] MEDS: ASPIRIN (EC) 81 MG TAB PO SCH (08:34)
[2018-06-29] MEDS: AMLODIPINE 10 MG TAB PO SCH (08:34)
[2018-06-29] MEDS: LORATADINE 10 MG TAB PO SCH (08:34)
[2018-06-29] MEDS: PAROXETINE 20 MG TAB PO SCH (08:34)
[2018-06-29] MEDS: DOCUSATE SODIUM 100 MG CAP PO SCH ×2 (08:35→21:33)
[2018-06-29] MEDS: FUROSEMIDE 40 MG TAB PO SCH (08:35)
[2018-06-29] MEDS: GABAPENTIN 300 MG CAP PO SCH ×3 (08:35→21:33)
[2018-06-29] MEDS: BENAZEPRIL 20 MG TAB PO SCH ×2 (08:35→21:35)
--- NOTE | 2018-06-29 09:41 | CONS ---
Assessment/Plan Assessment/Plan Hospital Course 62 yo M with multiple cerebrovascular risk factors who presents for evaluation of dysarthria x 1 day... for which neurology is consulted. The clinical picture was most ominously concerning for recurrent stroke. MRI brain is reassuringly without acute intracranial pathology. A toxically-mediated and nonspecific dysarthria is additionally considered. CTA H/N is notable for generalized intracranial atherosclerosis LDL 78, ESR 30, RPR neg UDS negative Echo is most notable for mild LA enlargement P: Cont ASA/Lipitor for secondary stroke prevention Other workup and medical management per primary PT/OT/ST as necessary Will follow clinically, to recommend neurologic studies, as necessary Consultation Date/Type/Reason Admit Date/Time June 26, 2018 at 20:19 Type of Consult Neurology Reason for Consultation slurred speech/ R hemiparesis Requesting Provider: LETY SANTANA MD Date/Time of Note DATE: 06/29/18 TIME: 09:41 24 HR Interval Summary Free Text/Dictation Continues acute care. S/p MRI Exam Vital Signs Vitals Vital Signs Date Temp Pulse Resp B/P (MAP) Pulse Ox O2 O2 Flow FiO2 Time Delivery Rate 06/29/18 98.3 74 22 130/73 98 Nasal 08:17 (92) Cannula 06/29/18 21 08:08 06/27/18 2.0 17:28 Intake and Output 06/28/18 06/28/18 06/29/18 1414:59 22:59 06:59 IntakeIntake Total 700 ml 700 ml OutputOutput Total 550 ml BalanceBalance 700 ml 150 ml Exam PE: Gen Appearance: No Apparent Distress HEENT: Normocephalic Cardiovascular: Regular rate Lungs: Clear bilaterally Abdomen: Soft Extremities: Dry NE: The patient was alert and oriented. Speech was slightly dysarthric. Language was normal. Fund of knowledge was normal. Pupils were equal and reactive to light. There was no afferent pupillary defect. Visual gomez were full. Funduscopic examination was limited. Extra-ocular movements were full. Ptosis was absent. There was no nystagmus. Facial sensation was normal. Face was symmetric with normal strength. Hearing was intact. Palate movements were normal. Neck strength was normal. There was normal tongue bulk and speed of movement. Tone was normal. Muscle bulk was normal. I did not see fasciculations. Arms and legs were mildly weak on the R, though improved. Vibration sensation was diminished on the R. Temperature and pinprick sensation was normal. Rapid alternating movements were normal. There was no dysmetria. There was no intention tremor. Gait was deferred due to bedrest. Arm and leg reflexes were 2+ and symmetric. Jones's sign was absent. Plantar responses were flexor. HERIBERTO VIDES NP June 29, 2018 09:41
[2018-06-29] MEDS ORDERED: POTASSIUM CHLORIDE (SR) 20 MEQ TAB PO STA ×2 (12:49→15:09)
--- NOTE | 2018-06-29 13:43 | CONS ---
Consultation Date/Type/Reason Admit Date/Time June 26, 2018 at 20:19 Type of Consult Cardiology Date/Time of Note DATE: 06/29/18 TIME: 13:42 Hx of Present Illness R/O WI - no CP - MRI done r/o CVA - med RX now Past Medical History Home Meds Reported Medications Latanoprost (Latanoprost) 2.5 Ml Drops, 1 DROP BOTH EYES QHS, #1 BOTTLE 06/29/18 Trazodone Hcl* (Trazodone Hcl*) 100 Mg Tablet, 100 MG PO QHS PRN for NEEDED, #30 TAB 06/26/18 Paroxetine Hcl* (Paxil*) 20 Mg Tablet, 20 MG PO DAILY, TAB 06/26/18 Nitroglycerin* (Nitroglycerin* SL) 0.4 Mg Tab.subl, 0.4 MG SL Q5MIN PRN for CHEST PAIN, BOTTLE 06/26/18 Metformin Hcl* (Metformin Hcl*) 500 Mg Tablet, 500 MG PO WITH BREAKFAST DINNE, #60 TAB 06/26/18 Lorazepam* (Lorazepam*) 1 Mg Tablet, 1 MG PO HS PRN for NEEDED, #30 TAB 06/26/18 Loratadine* (Loratadine*) 10 Mg Tablet, 10 MG PO DAILY, #30 TAB 06/26/18 Furosemide* (Furosemide*) 40 Mg Tablet, 40 MG PO DAILY, TAB 06/26/18 Hydralazine Hcl* (Hydralazine Hcl*) 25 Mg Tab, 25 MG PO Q8, #90 TAB 06/26/18 Gabapentin* (Gabapentin*) 300 Mg Capsule, 300 MG PO TID, #90 CAP 06/26/18 Tamsulosin Hcl* (Flomax*) 0.4 Mg Cap.er.24h, 0.4 MG PO HS, CAP 06/26/18 Doxazosin Mesylate* (Doxazosin Mesylate*) 8 Mg Tablet, 8 MG PO HS, TAB 06/26/18 Carvedilol* (Carvedilol*) 25 Mg Tablet, 25 MG PO BID, #60 TAB 06/26/18 Benazepril Hcl* (Benazepril Hcl*) 20 Mg Tablet, 20 MG PO BID, #60 TAB 06/26/18 Atorvastatin Calcium (Atorvastatin Calcium) 10 Mg Tablet, 10 MG PO QHS, #30 TAB 06/26/18 Aspirin* (Aspirin* EC) 81 Mg Tablet.dr, 81 MG PO DAILY, TAB 06/26/18 Amlodipine Besylate* (Amlodipine Besylate*) 10 Mg Tablet, 10 MG PO DAILY, #30 TAB 06/26/18 Ipratropium-Albuterol (Ipratropium-Albuterol) 0.5-3 Mg/3 Ml Ampul.neb, 3 ML INHALATION Q6, #30 VIAL 06/26/18 Discontinued Reported Medications Doxazosin Mesylate* (Doxazosin Mesylate*) 4 Mg Tablet, 4 MG PO HS, TAB 02/26/17 Benazepril Hcl* (Benazepril Hcl*) 10 Mg Tablet, 10 MG PO DAILY, #30 TAB 02/26/17 Amlodipine Besylate* (Norvasc*) 5 Mg Tablet, 5 MG PO BID, TAB 02/26/17 Atorvastatin Calcium (Atorvastatin Calcium) 10 Mg Tablet, 10 MG PO QHS, #30 TAB 02/26/17 Albuterol Sulfate* (Ventolin HFA*) 18 Gm Hfa.aer.ad, 2 PUFF INHALATION Q6H PRN for WHEEZING AND SOB, #1 INHALER 02/18/17 Trazodone Hcl* (Trazodone Hcl*) 150 Mg Tablet, 150 MG PO QHS, #30 TAB 02/18/17 Tamsulosin Hcl* (Flomax*) 0.4 Mg Cap.er.24h, 0.4 MG PO HS, CAP 02/18/17 Paroxetine Hcl* (Paxil*) 20 Mg Tablet, 20 MG PO DAILY, TAB 02/18/17 Loratadine* (Loratadine*) 10 Mg Tablet, 10 MG PO DAILY, #30 TAB 02/18/17 Latanoprost (Latanoprost) 2.5 Ml Drops, 1 DROP BOTH EYES QHS, #1 BOTTLE 02/18/17 Glimepiride* (Glimepiride*) 2 Mg Tablet, 2 MG PO WITH BREAKFAST DINNE, TAB 02/18/17 Fluticasone Propionate* (Fluticasone Propionate* Nasal) 50 Mcg/[place] - 16 Gm [place].susp, 2 SPRAYS NASAL DAILY, #1 BOTTLE TO EACH NOSTRIL 02/18/17 Finasteride* (Finasteride*) 5 Mg Tablet, 5 MG PO QHS, TAB 08/15/16 Fenofibrate, Micronized (Fenofibrate) 54 Mg Tablet, 54 MG PO DAILY, TAB 08/15/16 Docusate Sodium* (Dok*) 100 Mg Tablet, 100 MG PO DAILY, #30 CAP 08/15/16 Meclizine Hcl* (Meclizine Hcl*) 25 Mg Tablet, 25 MG PO DAILY PRN for DIZZINESS, TAB 08/15/16 Discontinued Scripts Levofloxacin* (Levaquin*) 500 Mg Tablet, 500 MG PO DAILY@06 for 10 Days, TAB Prov:LETY SANTANA MD 10/29/17 Prednisone* (Prednisone*) 20 Mg Tab, 20 MG PO DAILY for 10 Days, TAB Prov:LETY SANTANA MD 10/29/17 Famotidine* (Pepcid*) 20 Mg Tablet, 20 MG PO BID, #60 TAB Prov:FARHANA BROWN MD 03/01/17 Hydrocodone Bit-Acetaminophen (Hydrocodone Bit-APAP) 5-325MG Tablet, 1 TAB PO Q6H PRN for MODERATE PAIN LEVEL 4-6 for 7 Days, TAB Prov:FARHANA BROWN MD 03/01/17 Hydralazine Hcl* (Apresoline*) 50 Mg Tab, 100 MG PO Q8 for 28 Days, TAB Prov:FARHANA BROWN MD 03/01/17 Ipratropium-Albuterol (Ipratropium-Albuterol) 0.5-3 Mg/3 Ml Ampul.neb, 3 ML HHN Q6H RESP THERAPY PRN for SHORTNESS OF BREATH for 28 Days Prov:FARHANA BROWN MD 03/01/17 Lorazepam* (Lorazepam*) 1 Mg Tablet, 1 MG PO DAILY PRN for ANXIETY for 14 Days, #30 TAB Prov:FARHANA BROWN MD 03/01/17 Furosemide (Lasix) 40 Mg Tab, 40 MG PO DAILY for 30 Days, TAB Prov:FARHANA BROWN MD 03/01/17 Gabapentin (GABAPENTIN) 300 Mg/6 Ml Solution, 300 MG PO TID for 30 Days Prov:LETY SANTANA MD 02/22/17 Metoprolol Succinate* (Toprol XL*) 50 Mg Tab.er.24h, 50 MG PO DAILY for 30 Days Prov:LETY SANTANA MD 02/22/17 Atorvastatin* (Atorvastatin*) 40 Mg Tablet, 40 MG PO HS for 30 Days, TAB Prov:LETY SANTANA MD 02/22/17 Nitroglycerin* (Nitrostat*) 0.4 Mg Tab.subl, 1 TAB SL Q5M PRN for ANGINA for 28 Days Prov:FARHANA BROWN MD 08/20/16 Medications Current Medications Amlodipine Besylate (Norvasc) 10 mg DAILY PO Last administered on 06/29/18 08:34; Admin Dose 10 MG; Start 06/27/18 at 09:00 Aspirin (Halfprin) 81 mg DAILY PO Last administered on 06/29/18 08:34; Admin Dose 81 MG; Start 06/27/18 at 09:00 Atorvastatin Calcium (Lipitor) 10 mg QHS PO Last administered on 06/28/18 21:16; Admin Dose 10 MG; Start 06/27/18 at 21:00 Benazepril HCl (Lotensin) 20 mg BID PO Last administered on 06/29/18 08:35; Admin Dose 20 MG; Start 06/27/18 at 09:00 Carvedilol (Coreg) 25 mg BID PO Last administered on 06/29/18 08:35; Admin Dose 25 MG; Start 06/27/18 at 09:00 Doxazosin Mesylate (Cardura) 8 mg HS PO Last administered on 06/28/18 21:16; Admin Dose 8 MG; Start 06/27/18 at 21:00 Furosemide (Lasix) 40 mg DAILY PO Last administered on 06/29/18 08:35; Admin Dose 40 MG; Start 06/27/18 at 09:00 Gabapentin (Neurontin) 300 mg TID PO Last administered on 06/29/18 13:04; Admin Dose 300 MG; Start 06/27/18 at 09:00 Hydralazine HCl (Apresoline) 25 mg Q8 PO Last administered on 06/29/18 13:04; Admin Dose 25 MG; Start 06/27/18 at 06:00 Albuterol/ Ipratropium (Duoneb) 3 ml Q6H RESP THERAPY INH Last administered on 06/29/18 08:08; Admin Dose 3 ML; Start 06/27/18 at 02:00 Loratadine (Claritin) 10 mg DAILY PO Last administered on 06/29/18 08:34; Admin Dose 10 MG; Start 06/27/18 at 09:00 Lorazepam (Ativan) 1 mg HS PRN PO NEEDED Last administered on 06/28/18 04:16; Admin Dose 1 MG; Start 06/26/18 at 22:30 Nitroglycerin (Nitroglycerin (Sl Tab) 0.4 Mg) 0.4 tab [id number] PRN SL CHEST PAIN; Start 06/26/18 at 22:30 Paroxetine HCl (Paxil) 20 mg DAILY PO Last administered on 06/29/18 08:34; Admin Dose 20 MG; Start 06/27/18 at 09:00 Tamsulosin HCl (Flomax) 0.4 mg HS PO Last administered on 06/28/18 21:16; Admin Dose 0.4 MG; Start 06/27/18 at 21:00 Trazodone HCl (Desyrel) 100 mg QHS PRN PO NEEDED Last administered on 06/28/18 23:06; Admin Dose 100 MG; Start 06/26/18 at 22:30 IV Flush (NS 3 ml) 3 ml PER PROTOCOL IV ; Start 06/26/18 at 23:00 Ondansetron HCl (Zofran Inj) 4 mg Q6H PRN IV NAUSEA/VOMITING; Start 06/26/18 at 23:00 Acetaminophen (Tylenol Tab) 650 mg Q6H PRN PO .PAIN 1-3 OR TEMP Last administered on 06/27/18 18:41; Admin Dose 650 MG; Start 06/26/18 at 23:00 Acetaminophen (Tylenol Supp) 650 mg Q6H PRN MS .PAIN 1-3 OR TEMP; Start 06/26/18 at 23:00 Docusate Sodium (Colace) 100 mg Q12H PRN PO .CONSTIPATION; Start 06/26/18 at 23:00 Magnesium Hydroxide (Milk Of Mag) 30 ml DAILY PRN PO .CONSTIPATION Last administered on 06/29/18 08:34; Admin Dose 30 ML; Start 06/26/18 at 23:00 Bisacodyl (Dulcolax) 5 mg DAILY PRN PO .CONSTIPATION Last administered on 06/28/18 08:57; Admin Dose 5 MG; Start 06/26/18 at 23:00 Docusate Sodium (Colace) 100 mg BID PO Last administered on 06/29/18at 08:35; Admin Dose 100 MG; Start 06/27/18 at 15:00 Polyethylene Glycol (Miralax) 17 gm DAILY PRN PO CONSTIPATION Last administered on 06/27/18at 18:41; Admin Dose 17 GM; Start 06/27/18 at 15:00 Pantoprazole (Protonix Tab) 40 mg DAILY@06 PO Last administered on 06/29/18at 05:56; Admin Dose 40 MG; Start 06/28/18 at 06:00 Latanoprost (Xalatan) 1 drop QHS BOTH EYES ; Start 06/29/18 at 21:00 Allergies: Coded Allergies: No Known Drug Allergies (Unverified Allergy, Unknown, 06/26/18) Past Surgical History Past Surgical Hx: no surgical history Social History Smoking Status: Never smoker Exam/Review of Systems Vital Signs Vitals Vital Signs Date Temp Pulse Resp B/P (MAP) Pulse Ox O2 O2 Flow FiO2 Time Delivery Rate 06/29/18 98.0 68 20 115/67 100 Room Air 11:25 (83) 06/29/18 21 08:08 06/27/18 2.0 17:28 Intake and Output 06/28/18 06/28/18 06/29/18 1515:00 23:00 07:00 IntakeIntake Total 700 ml 700 ml OutputOutput Total 550 ml BalanceBalance 700 ml 150 ml Labs Result Diagram: 06/29/18 0435 06/29/18 0435 Results 24hrs Laboratory Tests Test 06/29/18 04:35 White Blood Count 5.7 Red Blood Count 3.65 L Hemoglobin 10.1 L Hematocrit 31.3 L Mean Corpuscular Volume 85.8 Mean Corpuscular Hemoglobin 27.7 L Mean Corpuscular Hemoglobin Concent 32.3 Red Cell Distribution Width 13.9 Platelet Count 206 Mean Platelet Volume 11.6 H Immature Granulocytes % 0.200 Neutrophils % 64.5 Lymphocytes % 19.9 Monocytes % 11.2 H Eosinophils % 3.7 Basophils % 0.5 Nucleated Red Blood Cells % 0.0 Immature Granulocytes # 0.010 Neutrophils # 3.7 Lymphocytes # 1.1 Monocytes # 0.6 Eosinophils # 0.2 Basophils # 0.0 Nucleated Red Blood Cells # 0.0 Sodium Level 142 Potassium Level 3.3 L Chloride Level 101 Carbon Dioxide Level 33 H Anion Gap 8 Blood Urea Nitrogen 18 Creatinine 1.63 H Est Glomerular Filtrat Rate mL/min 52 L Glucose Level 105 Calcium Level 8.8 Medications Medications Current Medications Amlodipine Besylate (Norvasc) 10 mg DAILY PO Last administered on 06/29/18 08:34; Admin Dose 10 MG; Start 06/27/18 at 09:00 Aspirin (Halfprin) 81 mg DAILY PO Last administered on 06/29/18 08:34; Admin Dose 81 MG; Start 06/27/18 at 09:00 Atorvastatin Calcium (Lipitor) 10 mg QHS PO Last administered on 06/28/18 21:16; Admin Dose 10 MG; Start 06/27/18 at 21:00 Benazepril HCl (Lotensin) 20 mg BID PO Last administered on 06/29/18 08:35; Admin Dose 20 MG; Start 06/27/18 at 09:00 Carvedilol (Coreg) 25 mg BID PO Last administered on 06/29/18 08:35; Admin Dose 25 MG; Start 06/27/18 at 09:00 Doxazosin Mesylate (Cardura) 8 mg HS PO Last administered on 06/28/18 21:16; Admin Dose 8 MG; Start 06/27/18 at 21:00 Furosemide (Lasix) 40 mg DAILY PO Last administered on 06/29/18 08:35; Admin Dose 40 MG; Start 06/27/18 at 09:00 Gabapentin (Neurontin) 300 mg TID PO Last administered on 06/29/18 13:04; Admin Dose 300 MG; Start 06/27/18 at 09:00 Hydralazine HCl (Apresoline) 25 mg Q8 PO Last administered on 06/29/18 13:04; Admin Dose 25 MG; Start 06/27/18 at 06:00 Albuterol/ Ipratropium (Duoneb) 3 ml Q6H RESP THERAPY INH Last administered on 06/29/18 08:08; Admin Dose 3 ML; Start 06/27/18 at 02:00 Loratadine (Claritin) 10 mg DAILY PO Last administered on 06/29/18 08:34; Admin Dose 10 MG; Start 06/27/18 at 09:00 Lorazepam (Ativan) 1 mg HS PRN PO NEEDED Last administered on 06/28/18 04:16; Admin Dose 1 MG; Start 06/26/18 at 22:30 Nitroglycerin (Nitroglycerin (Sl Tab) 0.4 Mg) 0.4 tab [id number] PRN SL CHEST PAIN; Start 06/26/18 at 22:30 Paroxetine HCl (Paxil) 20 mg DAILY PO Last administered on 06/29/18 08:34; Admin Dose 20 MG; Start 06/27/18 at 09:00 Tamsulosin HCl (Flomax) 0.4 mg HS PO Last administered on 06/28/18 21:16; Admin Dose 0.4 MG; Start 06/27/18 at 21:00 Trazodone HCl (Desyrel) 100 mg QHS PRN PO NEEDED Last administered on 06/28/18 23:06; Admin Dose 100 MG; Start 06/26/18 at 22:30 IV Flush (NS 3 ml) 3 ml PER PROTOCOL IV ; Start 06/26/18 at 23:00 Ondansetron HCl (Zofran Inj) 4 mg Q6H PRN IV NAUSEA/VOMITING; Start 06/26/18 at 23:00 Acetaminophen (Tylenol Tab) 650 mg Q6H PRN PO .PAIN 1-3 OR TEMP Last administered on 06/27/18 18:41; Admin Dose 650 MG; Start 06/26/18 at 23:00 Acetaminophen (Tylenol Supp) 650 mg Q6H PRN MS .PAIN 1-3 OR TEMP; Start 06/26/18 at 23:00 Docusate Sodium (Colace) 100 mg Q12H PRN PO .CONSTIPATION; Start 06/26/18 at 23:00 Magnesium Hydroxide (Milk Of Mag) 30 ml DAILY PRN PO .CONSTIPATION Last administered on 06/29/18 08:34; Admin Dose 30 ML; Start 06/26/18 at 23:00 Bisacodyl (Dulcolax) 5 mg DAILY PRN PO .CONSTIPATION Last administered on 06/28/18 08:57; Admin Dose 5 MG; Start 06/26/18 at 23:00 Docusate Sodium (Colace) 100 mg BID PO Last administered on 06/29/18 08:35; Admin Dose 100 MG; Start 06/27/18 at 15:00 Polyethylene Glycol (Miralax) 17 gm DAILY PRN PO CONSTIPATION Last administered on 06/27/18at 18:41; Admin Dose 17 GM; Start 06/27/18 at 15:00 Pantoprazole (Protonix Tab) 40 mg DAILY@06 PO Last administered on 06/29/18at 05:56; Admin Dose 40 MG; Start 06/28/18 at 06:00 Latanoprost (Xalatan) 1 drop QHS BOTH EYES ; Start 06/29/18 at 21:00 SULY MARCOS MD June 29, 2018 13:43
--- NOTE | 2018-06-29 14:02 | PN ---
Date/Time of Note Date/Time of Note DATE: 06/29/18 TIME: 13:57 Assessment/Plan VTE Prophylaxis Risk score (from [facility] [place]0 risk: 5 SCD applied (from [facility] [place]): Yes Pharmacological prophylaxis: LMWH Lines/Catheters IV Catheter Type (from [facility]): [place] Urinary Cath still in place: No Assessment/Plan Hospital Course 1. Falling backwards for past few days with some weakness on the right upper and lower extremity. CT of the head is possible acute subacute infarct involving anterior right temporal lobe. MRI negative. The patient also had a CT angio shows no CT evidence of aneurysm, dissection or flow-limiting stenosis. 2. History of chronic obstructive pulmonary disease. 3. Diabetes. 4. Hypertension. 5. Hyperlipidemia. 6. History of congestive heart failure. 7. Chronic kidney disease stage III. 8. History of anxiety. 9. Anemia 10. Obesity 11. hypernatremia 12. Metabolic syndrome, Hg A1 C 5.7 Assessment/Plan -tele. K+ supplemented -case management HH PT -aspirin, statin. -cardiology consult dr Jaramillo, seen - neurology was consulted. -echo: 60 %. Normal appearance and function of the mitral valve with trace physiologic regurgitation. -creatinine monitor, it is rising -UA today -DVT proph. Lovenox -GI proph. Protonix Result Diagram: 06/29/1843406/29/18 0435 Results 24hrs Laboratory Tests Test 06/29/18 04:35 White Blood Count 5.7 Red Blood Count 3.65 L Hemoglobin 10.1 L Hematocrit 31.3 L Mean Corpuscular Volume 85.8 Mean Corpuscular Hemoglobin 27.7 L Mean Corpuscular Hemoglobin Concent 32.3 Red Cell Distribution Width 13.9 Platelet Count 206 Mean Platelet Volume 11.6 H Immature Granulocytes % 0.200 Neutrophils % 64.5 Lymphocytes % 19.9 Monocytes % 11.2 H Eosinophils % 3.7 Basophils % 0.5 Nucleated Red Blood Cells % 0.0 Immature Granulocytes # 0.010 Neutrophils # 3.7 Lymphocytes # 1.1 Monocytes # 0.6 Eosinophils # 0.2 Basophils # 0.0 Nucleated Red Blood Cells # 0.0 Sodium Level 142 Potassium Level 3.3 L Chloride Level 101 Carbon Dioxide Level 33 H Anion Gap 8 Blood Urea Nitrogen 18 Creatinine 1.63 H Est Glomerular Filtrat Rate mL/min 52 L Glucose Level 105 Calcium Level 8.8 Subjective 24 Hr Interval Summary Constitutional: no complaints, improved Eyes: no complaints Respiratory: no complaints Genitourinary: no complaints; No bleeding, No dysuria, No discharge, No flank pain, No hematuria, No other Exam/Review of Systems Exam Vitals Vital Signs Date Temp Pulse Resp B/P (MAP) Pulse Ox O2 O2 Flow FiO2 Time Delivery Rate 06/29/18 98.0 68 20 115/67 100 Room Air 11:25 (83) 06/29/18 21 08:08 06/27/18 2.0 17:28 Intake and Output 06/28/18 06/28/18 06/29/18 1515:00 23:00 07:00 IntakeIntake Total 700 ml 700 ml OutputOutput Total 550 ml BalanceBalance 700 ml 150 ml Constitutional: alert, oriented Respiratory: clear to auscultation Cardiovascular: regular rate and rhythm Gastrointestinal: soft Musculoskeletal: muscle weakness (right side) Results Results 24hrs Laboratory Tests Test 06/29/18 04:35 White Blood Count 5.7 Red Blood Count 3.65 L Hemoglobin 10.1 L Hematocrit 31.3 L Mean Corpuscular Volume 85.8 Mean Corpuscular Hemoglobin 27.7 L Mean Corpuscular Hemoglobin Concent 32.3 Red Cell Distribution Width 13.9 Platelet Count 206 Mean Platelet Volume 11.6 H Immature Granulocytes % 0.200 Neutrophils % 64.5 Lymphocytes % 19.9 Monocytes % 11.2 H Eosinophils % 3.7 Basophils % 0.5 Nucleated Red Blood Cells % 0.0 Immature Granulocytes # 0.010 Neutrophils # 3.7 Lymphocytes # 1.1 Monocytes # 0.6 Eosinophils # 0.2 Basophils # 0.0 Nucleated Red Blood Cells # 0.0 Sodium Level 142 Potassium Level 3.3 L Chloride Level 101 Carbon Dioxide Level 33 H Anion Gap 8 Blood Urea Nitrogen 18 Creatinine 1.63 H Est Glomerular Filtrat Rate mL/min 52 L Glucose Level 105 Calcium Level 8.8 Medications Medication Current Medications Amlodipine Besylate (Norvasc) 10 mg DAILY PO Last administered on 06/29/18at 08:34; Admin Dose 10 MG; Start 06/27/18 at 09:00 Aspirin (Halfprin) 81 mg DAILY PO Last administered on 06/29/18at 08:34; Admin Dose 81 MG; Start 06/27/18 at 09:00 Atorvastatin Calcium (Lipitor) 10 mg QHS PO Last administered on 06/28/18 21:16; Admin Dose 10 MG; Start 06/27/18 at 21:00 Benazepril HCl (Lotensin) 20 mg BID PO Last administered on 06/29/18 08:35; Admin Dose 20 MG; Start 06/27/18 at 09:00 Carvedilol (Coreg) 25 mg BID PO Last administered on 06/29/18 08:35; Admin Dose 25 MG; Start 06/27/18 at 09:00 Doxazosin Mesylate (Cardura) 8 mg HS PO Last administered on 06/28/18 21:16; Admin Dose 8 MG; Start 06/27/18 at 21:00 Furosemide (Lasix) 40 mg DAILY PO Last administered on 06/29/18 08:35; Admin Dose 40 MG; Start 06/27/18 at 09:00 Gabapentin (Neurontin) 300 mg TID PO Last administered on 06/29/18 13:04; Admin Dose 300 MG; Start 06/27/18 at 09:00 Hydralazine HCl (Apresoline) 25 mg Q8 PO Last administered on 06/29/18 13:04; Admin Dose 25 MG; Start 06/27/18 at 06:00 Albuterol/ Ipratropium (Duoneb) 3 ml Q6H RESP THERAPY INH Last administered on 06/29/18 08:08; Admin Dose 3 ML; Start 06/27/18 at 02:00 Loratadine (Claritin) 10 mg DAILY PO Last administered on 06/29/18 08:34; Admin Dose 10 MG; Start 06/27/18 at 09:00 Lorazepam (Ativan) 1 mg HS PRN PO NEEDED Last administered on 06/28/18 04:16; Admin Dose 1 MG; Start 06/26/18 at 22:30 Nitroglycerin (Nitroglycerin (Sl Tab) 0.4 Mg) 0.4 tab [id number] PRN SL CHEST PAIN; Start 06/26/18 at 22:30 Paroxetine HCl (Paxil) 20 mg DAILY PO Last administered on 06/29/18 08:34; Admin Dose 20 MG; Start 06/27/18 at 09:00 Tamsulosin HCl (Flomax) 0.4 mg HS PO Last administered on 06/28/18 21:16; Admin Dose 0.4 MG; Start 06/27/18 at 21:00 Trazodone HCl (Desyrel) 100 mg QHS PRN PO NEEDED Last administered on 06/28/18 23:06; Admin Dose 100 MG; Start 06/26/18 at 22:30 IV Flush (NS 3 ml) 3 ml PER PROTOCOL IV ; Start 06/26/18 at 23:00 Ondansetron HCl (Zofran Inj) 4 mg Q6H PRN IV NAUSEA/VOMITING; Start 06/26/18 at 23:00 Acetaminophen (Tylenol Tab) 650 mg Q6H PRN PO .PAIN 1-3 OR TEMP Last administered on 06/27/18 18:41; Admin Dose 650 MG; Start 06/26/18 at 23:00 Acetaminophen (Tylenol Supp) 650 mg Q6H PRN OR .PAIN 1-3 OR TEMP; Start 06/26/18 at 23:00 Docusate Sodium (Colace) 100 mg Q12H PRN PO .CONSTIPATION; Start 06/26/18 at 23:00 Magnesium Hydroxide (Milk Of Mag) 30 ml DAILY PRN PO .CONSTIPATION Last administered on 06/29/18 08:34; Admin Dose 30 ML; Start 06/26/18 at 23:00 Bisacodyl (Dulcolax) 5 mg DAILY PRN PO .CONSTIPATION Last administered on 06/28/18 08:57; Admin Dose 5 MG; Start 06/26/18 at 23:00 Docusate Sodium (Colace) 100 mg BID PO Last administered on 06/29/18 08:35; Admin Dose 100 MG; Start 06/27/18 at 15:00 Polyethylene Glycol (Miralax) 17 gm DAILY PRN PO CONSTIPATION Last administered on 06/27/18 18:41; Admin Dose 17 GM; Start 06/27/18 at 15:00 Pantoprazole (Protonix Tab) 40 mg DAILY@06 PO Last administered on 06/29/18 05:56; Admin Dose 40 MG; Start 06/28/18 at 06:00 Latanoprost (Xalatan) 1 drop QHS BOTH EYES ; Start 06/29/18 at 21:00 TIKI BASURTO June 29, 2018 14:02
[2018-06-29] MEDS: ENOXAPARIN 40 MG/0.4 ML SYG SC SCH (14:44)
--- NOTE | 2018-06-29 17:44 | CONS ---
DATE OF ADMISSION: 06/26/2018 DATE OF CONSULTATION: 06/29/2018 REFERRING PHYSICIAN: Abundio Brown MD REASON FOR EVALUATION: Abnormal EKG, hypertension, possible stroke versus TIA. HISTORY OF PRESENT ILLNESS: Mr. Bolivar is a 62-year-old gentleman known to me from prior admission , has a history of hypertension, dyslipidemia, history of coronary artery disease, had a negative str ess test in February of 2017 with ejection fraction documented at 51%, who came to the hospital now fo r evaluation of possible syncope versus altered mental status. The initial consideration was that th e patient had a stroke. His head CT was concerning for possible stroke but MRI did not confirm the f indings. The patient has been evaluated by neurology in that respect. From a cardiac standpoint, th e patient appears to be hemodynamically stable at this particular point. His blood pressure is fairl y well controlled at 115/67. He does not elicit any chest pain. His EKG shows sinus rhythm with marissa e nonspecific ST-T changes. It first-degree AV block, but his VT interval appears to be fairly normal to my evaluation. I think for now, conservative therapy is expected from a cardiac standpoin t, the neurologist can optimize his TIA/CVA medications. I will review his blood pressure medicines and provide recommendations and care as more information about his condition becomes available. PAST MEDICAL HISTORY: 1. Hypertension. 2. Dyslipidemia. 3. History of coronary artery disease. 4. History of negative stress test in 02/2017. 5. History of heart failure with preserved ejection fraction with last ejection fraction documented at 51% and by stress test and fairly normal by echo now. ALLERGIES: NO KNOWN DRUG ALLERGIES. SOCIAL HISTORY: The patient does not smoke, does not drink, does not use any drugs now. He has a hi story of tobacco use in the past. MEDICATIONS: 1. Xalatan eyedrops. 2. Pantoprazole 40 mg p.o. once a day. 3. Lipitor 10 mg p.o. once a day. 4. Cardura 8 mg p.o. once a day. 5. Flomax 0.4 mg p.o. at bedtime. 6. Colace 100 mg b.i.d. 7. MiraLax. 8. Amlodipine 10 mg p.o. once a day. 9. Aspirin 81 mg once a day. 10. Benazepril 20 mg once a b.i.d. 11. Coreg 25 mg p.o. twice a day. 12. Lasix 40 mg once a day. 13. Loratadine. 14. . 14. Hydralazine. 15. Tylenol. 16. Nitroglycerin. REVIEW OF SYSTEMS: CONSTITUTIONAL: No fevers, no chills. Recent episode of altered mental status, ruled out for CVA. HEENT: No changes in vision or hearing. CARDIAC: Chest pain reported now. RESPIRATORY: Short of breath. GASTROINTESTINAL: No nausea, vomiting, diarrhea, or constipation. GENITOURINARY: No dysuria, hematuria. NEUROLOGIC: No focal neurologic deficits. PSYCHIATRIC: No history of psychiatric illness. PHYSICAL EXAMINATION: VITAL SIGNS: Temperature is 98.0, heart rate 68, blood pressure is 115/67. GENERAL: He is a well-nourished gentleman in no acute distress, oriented x2 to 3, somewhat aware of his condition. HEAD: Normocephalic, atraumatic. Eyes anicteric. NECK: Supple. JVD 6-7 cm. There is no lymphadenopathy, no thyromegaly. HEART: Regular, soft holosystolic murmur. PMI is minimally displaced. There is no S3. LUNGS: Coarse at the base. ABDOMEN: Distended, bowel sounds are present. There is no hepatosplenomegaly. GENITOURINARY: Intact. EXTREMITIES: Shows no clubbing or cyanosis. Trace edema. LABORATORY DATA: White blood cell count is 5.7, hemoglobin is 10.1, platelets 206. His INR is 1.0. Sodium 142, potassium is 3.3. His BUN is 18, creatinine 1.63. Troponin is negative at 0.017. ASSESSMENT AND PLAN: 1. Hypertension. Blood pressure well controlled now. Continue to monitor his cardiac status closel y. 2. History of heart failure with preserved ejection fraction. The patient appears to be fairly euvo lemic by my examination. 3. Renal insufficiency. Creatinine is up from 1.3 now to 1.63. Continue to avoid nephrotoxic medic ation. Dr. Brown follows. 4. Chest pain. Troponins are negative. The patient did not rule in for acute ischemia. There is n o evidence of acute ischemic evidence. 5. TIA versus CVA. MRI did not show any acute CVA. Neurology follows. Consider Plavix if indicate d. I would like to thank Dr. Brown for referring this patient for my evaluation. Dictated By: SULY MARCOS MD ML/NTS Conf#: [id number] DID#: [id number] CC: ABUNDIO BROWN MD;*EndCC*
[2018-06-29] MEDS ORDERED: LATANOPROST 0.005% 2.5 ML OPH BOTH EYES SCH (21:00)
[2018-06-29] MEDS: DOXAZOSIN 4 MG TAB PO SCH (21:33)
[2018-06-29] MEDS: TAMSULOSIN (SR) 0.4 MG CAP PO SCH (21:33)
[2018-06-29] MEDS: ATORVASTATIN 10 MG TAB PO SCH (21:33)
[2018-06-29] MEDS: traZODone 100 MG TAB PO PRN (21:42)
[2018-06-30] VITALS (11 sets, daily range): BP systolic 129–145; BP diastolic 66–91; PULSE 44–71; RESP 20
[2018-06-30] MEDS: ALBUTEROL/IPRATROPIUM (NEB) 3 ML AMP INH SCH ×3 (02:00→13:39)
[2018-06-30] MEDS: PANTOPRAZOLE (EC) 40 MG TAB PO SCH (05:28)
[2018-06-30] MEDS: ASPIRIN (EC) 81 MG TAB PO SCH (09:09)
[2018-06-30] MEDS: DOCUSATE SODIUM 100 MG CAP PO SCH (09:09)
[2018-06-30] MEDS: PAROXETINE 20 MG TAB PO SCH (09:09)
[2018-06-30] MEDS: FUROSEMIDE 40 MG TAB PO SCH (09:09)
[2018-06-30] MEDS: BENAZEPRIL 20 MG TAB PO SCH (09:09)
[2018-06-30] MEDS: AMLODIPINE 10 MG TAB PO SCH (09:09)
[2018-06-30] MEDS: GABAPENTIN 300 MG CAP PO SCH ×2 (09:09→12:07)
[2018-06-30] MEDS: ENOXAPARIN 40 MG/0.4 ML SYG SC SCH (09:11)
[2018-06-30] MEDS: LORATADINE 10 MG TAB PO SCH (09:11)
--- NOTE | 2018-06-30 11:15 | CONS ---
Assessment/Plan Assessment/Plan Hospital Course 62 yo M with multiple cerebrovascular risk factors who presents for evaluation of dysarthria x 1 day... for which neurology is consulted. The clinical picture was most ominously concerning for recurrent stroke. MRI brain is reassuringly without acute intracranial pathology. A toxically-mediated and nonspecific dysarthria is additionally considered. CTA H/N is notable for generalized intracranial atherosclerosis LDL 78, ESR 30, RPR neg UDS negative Echo is most notable for mild LA enlargement P: Cont ASA/Lipitor for secondary stroke prevention Other workup and medical management per primary PT/OT/ST as necessary Will follow clinically, to recommend neurologic studies, as necessary Consultation Date/Type/Reason Admit Date/Time June 26, 2018 at 20:19 Type of Consult Neurology Reason for Consultation slurred speech/ R hemiparesis Requesting Provider: LETY SANTANA MD Date/Time of Note DATE: 06/30/18 TIME: 11:14 24 HR Interval Summary Free Text/Dictation Continues acute care. Exam Vital Signs Vitals Vital Signs Date Temp Pulse Resp B/P (MAP) Pulse Ox O2 O2 Flow FiO2 Time Delivery Rate 06/30/18 97.9 70 20 145/91 100 Room Air 10:57 (109) 06/30/18 21 08:32 06/27/18 2.0 17:28 Intake and Output 06/29/18 06/29/18 06/30/18 1414:59 22:59 06:59 IntakeIntake Total 1000 ml 500 ml BalanceBalance 1000 ml 500 ml Exam PE: Gen Appearance: No Apparent Distress HEENT: Normocephalic Cardiovascular: Regular rate Lungs: Clear bilaterally Abdomen: Soft Extremities: Dry NE: The patient was alert and oriented. Speech was normal. Language was normal. Fund of knowledge was normal. Pupils were equal and reactive to light. There was no afferent pupillary defect. Visual gomez were full. Funduscopic examination was limited. Extra-ocular movements were full. Ptosis was absent. There was no nystagmus. Facial sensation was normal. Face was symmetric with normal strength. Hearing was intact. Palate movements were normal. Neck strength was normal. There was normal tongue bulk and speed of movement. Tone was normal. Muscle bulk was normal. I did not see fasciculations. Arms and legs were mildly weak on the R Vibration sensation was normal. Temperature and pinprick sensation was normal. Rapid alternating movements were normal. There was no dysmetria. There was no intention tremor. Gait was deferred due to bedrest. Arm and leg reflexes were 2+ and symmetric. Jones's sign was absent. Plantar responses were flexor. HERIBERTO VIDES NP June 30, 2018 11:15
--- NOTE | 2018-06-30 11:31 | PN ---
Date/Time of Note Date/Time of Note DATE: 06/30/18 TIME: 11:30 Assessment/Plan VTE Prophylaxis Risk score (from [facility] [place]0 risk: 2 SCD applied (from [facility] [place]): Yes Pharmacological prophylaxis: LMWH Lines/Catheters [facility] [place] Urinary Cath still in place: No Assessment/Plan Hospital Course 1. Falling backwards for past few days with some weakness on the right upper and lower extremity. CT of the head is possible acute subacute infarct involving anterior right temporal lobe. MRI negative. The patient also had a CT angio shows no CT evidence of aneurysm, dissection or flow-limiting stenosis. 2. History of chronic obstructive pulmonary disease. 3. Diabetes. 4. Hypertension. 5. Hyperlipidemia. 6. History of congestive heart failure. 7. Chronic kidney disease stage III. 8. History of anxiety. 9. Anemia 10. Obesity 11. hypernatremia 12. Metabolic syndrome, Hg A1 C 5.7 Assessment/Plan -tele. -case management HH PT will be clear tomorrow -aspirin, statin. -cardiology consult dr Jaramillo, seen - neurology was consulted. -echo: 60 %. Normal appearance and function of the mitral valve with trace physiologic regurgitation. -creatinine monitor,decreased -UA normal -d/c planning -DVT proph. Lovenox -GI proph. Protonix Result Diagram: 06/30/1852506/30/18525 Results 24hrs Laboratory Tests Test 06/29/18 14:35 06/30/18 05:26 Urine Color STRAW Urine Clarity CLEAR Urine pH 6.0 Urine Specific Johnson 1.008 Urine Ketones NEGATIVE Urine Nitrite NEGATIVE Urine Bilirubin NEGATIVE Urine Urobilinogen NEGATIVE Urine Leukocyte Esterase NEGATIVE Urine Hemoglobin NEGATIVE Urine Glucose NEGATIVE Urine Total Protein NEGATIVE White Blood Count 5.1 Red Blood Count 3.56 L Hemoglobin 9.9 L Hematocrit 30.7 L Mean Corpuscular Volume 86.2 Mean Corpuscular Hemoglobin 27.8 L Mean Corpuscular Hemoglobin Concent 32.2 Red Cell Distribution Width 14.1 Platelet Count 201 Mean Platelet Volume 12.3 H Immature Granulocytes % 0.200 Neutrophils % 63.7 Lymphocytes % 18.8 Monocytes % 12.4 H Eosinophils % 4.3 Basophils % 0.6 Nucleated Red Blood Cells % 0.0 Immature Granulocytes # 0.010 Neutrophils # 3.3 Lymphocytes # 1.0 Monocytes # 0.6 Eosinophils # 0.2 Basophils # 0.0 Nucleated Red Blood Cells # 0.0 Sodium Level 142 Potassium Level 3.7 Chloride Level 105 Carbon Dioxide Level 31 Anion Gap 6 Blood Urea Nitrogen 23 H Creatinine 1.48 H Est Glomerular Filtrat Rate mL/min 58 L Glucose Level 134 Calcium Level 8.6 Subjective 24 Hr Interval Summary Constitutional: no complaints Musculoskeletal: back pain Exam/Review of Systems Exam Vitals Vital Signs Date Temp Pulse Resp B/P (MAP) Pulse Ox O2 O2 Flow FiO2 Time Delivery Rate 06/30/18 97.9 70 20 145/91 100 Room Air 10:57 (109) 06/30/18 21 08:32 06/27/18 2.0 17:28 Intake and Output 06/29/18 06/29/18 06/30/18 1515:00 23:00 07:00 IntakeIntake Total 1000 ml 500 ml BalanceBalance 1000 ml 500 ml Constitutional: alert, oriented Respiratory: clear to auscultation Cardiovascular: regular rate and rhythm Gastrointestinal: soft Musculoskeletal: muscle weakness (right side) Results Results 24hrs Laboratory Tests Test 06/29/18 14:35 06/30/18 05:26 Urine Color STRAW Urine Clarity CLEAR Urine pH 6.0 Urine Specific Johnson 1.008 Urine Ketones NEGATIVE Urine Nitrite NEGATIVE Urine Bilirubin NEGATIVE Urine Urobilinogen NEGATIVE Urine Leukocyte Esterase NEGATIVE Urine Hemoglobin NEGATIVE Urine Glucose NEGATIVE Urine Total Protein NEGATIVE White Blood Count 5.1 Red Blood Count 3.56 L Hemoglobin 9.9 L Hematocrit 30.7 L Mean Corpuscular Volume 86.2 Mean Corpuscular Hemoglobin 27.8 L Mean Corpuscular Hemoglobin Concent 32.2 Red Cell Distribution Width 14.1 Platelet Count 201 Mean Platelet Volume 12.3 H Immature Granulocytes % 0.200 Neutrophils % 63.7 Lymphocytes % 18.8 Monocytes % 12.4 H Eosinophils % 4.3 Basophils % 0.6 Nucleated Red Blood Cells % 0.0 Immature Granulocytes # 0.010 Neutrophils # 3.3 Lymphocytes # 1.0 Monocytes # 0.6 Eosinophils # 0.2 Basophils # 0.0 Nucleated Red Blood Cells # 0.0 Sodium Level 142 Potassium Level 3.7 Chloride Level 105 Carbon Dioxide Level 31 Anion Gap 6 Blood Urea Nitrogen 23 H Creatinine 1.48 H Est Glomerular Filtrat Rate mL/min 58 L Glucose Level 134 Calcium Level 8.6 Medications Medication Current Medications Amlodipine Besylate (Norvasc) 10 mg DAILY PO Last administered on 06/30/18 09:09; Admin Dose 10 MG; Start 06/27/18 at 09:00 Aspirin (Halfprin) 81 mg DAILY PO Last administered on 06/30/18 09:09; Admin Dose 81 MG; Start 06/27/18 at 09:00 Atorvastatin Calcium (Lipitor) 10 mg QHS PO Last administered on 06/29/18 21:33; Admin Dose 10 MG; Start 06/27/18 at 21:00 Benazepril HCl (Lotensin) 20 mg BID PO Last administered on 06/30/18 09:09; Admin Dose 20 MG; Start 06/27/18 at 09:00 Carvedilol (Coreg) 25 mg BID PO Last administered on 06/29/18 21:34; Admin Dose 25 MG; Start 06/27/18 at 09:00 Doxazosin Mesylate (Cardura) 8 mg HS PO Last administered on 06/29/18 21:33; Admin Dose 8 MG; Start 06/27/18 at 21:00 Furosemide (Lasix) 40 mg DAILY PO Last administered on 06/30/18 09:09; Admin Dose 40 MG; Start 06/27/18 at 09:00 Gabapentin (Neurontin) 300 mg TID PO Last administered on 06/30/18 09:09; Admin Dose 300 MG; Start 06/27/18 at 09:00 Hydralazine HCl (Apresoline) 25 mg Q8 PO Last administered on 06/30/18 05:28; Admin Dose 25 MG; Start 06/27/18 at 06:00 Albuterol/ Ipratropium (Duoneb) 3 ml Q6H RESP THERAPY INH Last administered on 06/30/18 08:32; Admin Dose 3 ML; Start 06/27/18 at 02:00 Loratadine (Claritin) 10 mg DAILY PO Last administered on 06/30/18 09:11; Admin Dose 10 MG; Start 06/27/18 at 09:00 Lorazepam (Ativan) 1 mg HS PRN PO NEEDED Last administered on 06/28/18 04:16; Admin Dose 1 MG; Start 06/26/18 at 22:30 Nitroglycerin (Nitroglycerin (Sl Tab) 0.4 Mg) 0.4 tab [id number] PRN SL CHEST PAIN; Start 06/26/18 at 22:30 Paroxetine HCl (Paxil) 20 mg DAILY PO Last administered on 06/30/18 09:09; Admin Dose 20 MG; Start 06/27/18 at 09:00 Tamsulosin HCl (Flomax) 0.4 mg HS PO Last administered on 06/29/18 21:33; Admin Dose 0.4 MG; Start 06/27/18 at 21:00 Trazodone HCl (Desyrel) 100 mg QHS PRN PO NEEDED Last administered on 06/29/18 21:42; Admin Dose 100 MG; Start 06/26/18 at 22:30 IV Flush (NS 3 ml) 3 ml PER PROTOCOL IV ; Start 06/26/18 at 23:00 Ondansetron HCl (Zofran Inj) 4 mg Q6H PRN IV NAUSEA/VOMITING; Start 06/26/18 at 23:00 Acetaminophen (Tylenol Tab) 650 mg Q6H PRN PO .PAIN 1-3 OR TEMP Last administered on 06/27/18 18:41; Admin Dose 650 MG; Start 06/26/18 at 23:00 Acetaminophen (Tylenol Supp) 650 mg Q6H PRN NM .PAIN 1-3 OR TEMP; Start 06/26/18 at 23:00 Docusate Sodium (Colace) 100 mg Q12H PRN PO .CONSTIPATION; Start 06/26/18 at 23:00 Magnesium Hydroxide (Milk Of Mag) 30 ml DAILY PRN PO .CONSTIPATION Last administered on 06/29/18 08:34; Admin Dose 30 ML; Start 06/26/18 at 23:00 Bisacodyl (Dulcolax) 5 mg DAILY PRN PO .CONSTIPATION Last administered on 06/28/18 08:57; Admin Dose 5 MG; Start 06/26/18 at 23:00 Docusate Sodium (Colace) 100 mg BID PO Last administered on 06/30/18 09:09; Admin Dose 100 MG; Start 06/27/18 at 15:00 Polyethylene Glycol (Miralax) 17 gm DAILY PRN PO CONSTIPATION Last administered on 06/27/18 18:41; Admin Dose 17 GM; Start 06/27/18 at 15:00 Pantoprazole (Protonix Tab) 40 mg DAILY@06 PO Last administered on 06/30/18at 05:28; Admin Dose 40 MG; Start 06/28/18 at 06:00 Latanoprost (Xalatan) 1 drop QHS BOTH EYES Last administered on 06/29/18at 21:38; Admin Dose 1 DROP; Start 06/29/18 at 21:00 Enoxaparin Sodium (Lovenox) 40 mg DAILY SC Last administered on 06/30/18at 09:11; Admin Dose 40 MG; Start 06/29/18 at 14:30 TIKI BASURTO June 30, 2018 11:31
--- NOTE | 2018-06-30 12:38 | PDOCDIS ---
Discharge Instructions DIAGNOSIS Discharge Diagnosis TIA CONDITION [id number] Patient Condition: [id number] Stable ACTIVITY: [id number] Activity Restrictions: [id number] Slowly Increase Activity Rest between Activity Avoid heavy lifting FOLLOW UP/APPOINTMENTS Follow-up Plan PCP 1 week REFERRALS Other Referrals PT TIKI Martin June 30, 2018 12:38
--- NOTE | 2018-06-30 12:41 | DS ---
Date/Time of Note Date/Time of Note DATE: 06/30/18 TIME: 12:41 Discharge Summary Admission/Discharge Info Admit Date/Time June 26, 2018 at 20:19 Discharge Date/Time Discharge Diagnosis TIA Patient Condition: Stable Consults Dr Jaramillo cardiology, dr Nelson, neurology Procedures echocardiogram Hospital Course This is a 62-year-old male with a past medical history of COPD, CHF, hypertension, diastolic dysfunction, hyperlipidemia, diabetes, glaucoma, history of multiple admissions in the past secondary to COPD, history of strokes x2, presented to the emergency department after he called the paramedics as he was noted to have slurred speech. According to the patient, he has history of prior stroke. He has some residual weakness in the right upper and lower extremity. For the past 1 week, he has noted that every time he was trying to get up, he was falling backward. Yesterday, he tried to do the same thing and then he fell back. His daughter checked up on him and by the time she came to see him, he already called paramedics. According to the patient, he has noticed that he started having slurred speech around 2:00 p.m. and came to the emergency department. The patient was having some weakness of the right arm and leg. According to the patient, he has been only taking aspirin every other day due to his nosebleeds. On arrival to ED, temperature was 96.9, pulse 76, respirations 18, blood pressure 154/70. Potassium of 3.3, BUN of 13, creatinine 1.29, hemoglobin 10.1, white blood cell count 5.1, platelet count 220. Since the patient came 4 hours late, he was not considered TPA candidate. The patient had CT of the head that showed possible acute subacute infarcts in the anterior right temporal lobe, chronic bilateral cerebral microvascular ischemic diseases, old bilateral anterior basal ganglia, bilateral thalamus lacunar infarcts. The patient also had a CT angio that showed no CT evidence of aneurysm, dissection or flow limiting stenosis, moderate bilateral cavernous and supraclinoid ICA narrowing, focal stenosis of right and left intracranial vertebral arteries, more proximal right cervical ICA narrowing, large heterogeneous hypodense nodule measuring at 3 cm. The patient also had a chest x-ray that showed cardiomegaly and mild pulmonary congestion and the patient was admitted for further management. PAST MEDICAL HISTORY: 1. Hypertension. 2. Diabetes. 3. Hyperlipidemia. 4. History of prior strokes x2. 5. COPD. 6. CHF. 7. CKD stage III. 8. Obstructive sleep apnea. 9. History of smoking. During hospitalization code stroke was called, no TPA was administered due to out of time frame. Pt was admitted to telemetry service, Dr Nelson and her neurological team was consulted to r/out stroke and pt right side weakness. CT scan of head wad done, showed possible acute subacute infarct involving anterior right temporal lobe. MRI brain was negative. The patient also had a CT angio neck shows no CT evidence of aneurysm, dissection or flow, limiting stenosis.-Pt was recommended to c/w Aspirin and statin. Cardiology consult dr Jaramillo, was called. He ordered echocardiogram. It revealed: : EF 60 %. Normal appearance and function of the mitral valve with trace physiologic regurgitation. Due to pt CKD we monitored creatinine, urine, creatinine decreased prior to discharge. Daily pt had PT and ambulation. Dx:1. Falling backwards for past few days with some weakness on the right upper and lower extremity. CT of the head is possible acute subacute infarct involving anterior right temporal lobe. MRI negative. The patient also had a CT angio shows no CT evidence of aneurysm, dissection or flow-limiting stenosis. 2. History of chronic obstructive pulmonary disease. 3. Diabetes. 4. Hypertension. 5. Hyperlipidemia. 6. History of congestive heart failure. 7. Chronic kidney disease stage III. 8. History of anxiety. 9. Anemia 10. Obesity 11. hypernatremia 12. Metabolic syndrome, Hg A1 C 5.7 He was d/c with home health Home Meds Reported Medications Latanoprost (Latanoprost) 2.5 Ml Drops, 1 DROP BOTH EYES QHS, #1 BOTTLE 06/29/18 Trazodone Hcl* (Trazodone Hcl*) 100 Mg Tablet, 100 MG PO QHS PRN for NEEDED, #30 TAB 06/26/18 Paroxetine Hcl* (Paxil*) 20 Mg Tablet, 20 MG PO DAILY, TAB 06/26/18 Nitroglycerin* (Nitroglycerin* SL) 0.4 Mg Tab.subl, 0.4 MG SL Q5MIN PRN for CHEST PAIN, BOTTLE 06/26/18 Lorazepam* (Lorazepam*) 1 Mg Tablet, 1 MG PO HS PRN for NEEDED, #30 TAB 06/26/18 Loratadine* (Loratadine*) 10 Mg Tablet, 10 MG PO DAILY, #30 TAB 06/26/18 Furosemide* (Furosemide*) 40 Mg Tablet, 40 MG PO DAILY, TAB 06/26/18 Hydralazine Hcl* (Hydralazine Hcl*) 25 Mg Tab, 25 MG PO Q8, #90 TAB 06/26/18 Gabapentin* (Gabapentin*) 300 Mg Capsule, 300 MG PO TID, #90 CAP 06/26/18 Tamsulosin Hcl* (Flomax*) 0.4 Mg Cap.er.24h, 0.4 MG PO HS, CAP 06/26/18 Doxazosin Mesylate* (Doxazosin Mesylate*) 8 Mg Tablet, 8 MG PO HS, TAB 06/26/18 Carvedilol* (Carvedilol*) 25 Mg Tablet, 25 MG PO BID, #60 TAB 06/26/18 Benazepril Hcl* (Benazepril Hcl*) 20 Mg Tablet, 20 MG PO BID, #60 TAB 06/26/18 Atorvastatin Calcium (Atorvastatin Calcium) 10 Mg Tablet, 10 MG PO QHS, #30 TAB 06/26/18 Aspirin* (Aspirin* EC) 81 Mg Tablet.dr, 81 MG PO DAILY, TAB 06/26/18 Amlodipine Besylate* (Amlodipine Besylate*) 10 Mg Tablet, 10 MG PO DAILY, #30 TAB 06/26/18 Ipratropium-Albuterol (Ipratropium-Albuterol) 0.5-3 Mg/3 Ml Ampul.neb, 3 ML INHALATION Q6, #30 VIAL 06/26/18 Discontinued Reported Medications Metformin Hcl* (Metformin Hcl*) 500 Mg Tablet, 500 MG PO WITH BREAKFAST DINNE, #60 TAB 06/26/18 Doxazosin Mesylate* (Doxazosin Mesylate*) 4 Mg Tablet, 4 MG PO HS, TAB 02/26/17 Benazepril Hcl* (Benazepril Hcl*) 10 Mg Tablet, 10 MG PO DAILY, #30 TAB 02/26/17 Amlodipine Besylate* (Norvasc*) 5 Mg Tablet, 5 MG PO BID, TAB 02/26/17 Atorvastatin Calcium (Atorvastatin Calcium) 10 Mg Tablet, 10 MG PO QHS, #30 TAB 02/26/17 Albuterol Sulfate* (Ventolin HFA*) 18 Gm Hfa.aer.ad, 2 PUFF INHALATION Q6H PRN for WHEEZING AND SOB, #1 INHALER 02/18/17 Trazodone Hcl* (Trazodone Hcl*) 150 Mg Tablet, 150 MG PO QHS, #30 TAB 02/18/17 Tamsulosin Hcl* (Flomax*) 0.4 Mg Cap.er.24h, 0.4 MG PO HS, CAP 02/18/17 Paroxetine Hcl* (Paxil*) 20 Mg Tablet, 20 MG PO DAILY, TAB 02/18/17 Loratadine* (Loratadine*) 10 Mg Tablet, 10 MG PO DAILY, #30 TAB 02/18/17 Latanoprost (Latanoprost) 2.5 Ml Drops, 1 DROP BOTH EYES QHS, #1 BOTTLE 02/18/17 Glimepiride* (Glimepiride*) 2 Mg Tablet, 2 MG PO WITH BREAKFAST DINNE, TAB 02/18/17 Fluticasone Propionate* (Fluticasone Propionate* Nasal) 50 Mcg/Reeds - 16 Gm Reeds.susp, 2 SPRAYS NASAL DAILY, #1 BOTTLE TO EACH NOSTRIL 02/18/17 Finasteride* (Finasteride*) 5 Mg Tablet, 5 MG PO QHS, TAB 08/15/16 Fenofibrate, Micronized (Fenofibrate) 54 Mg Tablet, 54 MG PO DAILY, TAB 08/15/16 Docusate Sodium* (Dok*) 100 Mg Tablet, 100 MG PO DAILY, #30 CAP 08/15/16 Meclizine Hcl* (Meclizine Hcl*) 25 Mg Tablet, 25 MG PO DAILY PRN for DIZZINESS, TAB 08/15/16 Discontinued Scripts Levofloxacin* (Levaquin*) 500 Mg Tablet, 500 MG PO DAILY@06 for 10 Days, TAB Prov:LETY SANTANA MD 10/29/17 Prednisone* (Prednisone*) 20 Mg Tab, 20 MG PO DAILY for 10 Days, TAB Prov:LETY SANTANA MD 10/29/17 Famotidine* (Pepcid*) 20 Mg Tablet, 20 MG PO BID, #60 TAB Prov:FARHANA BROWN MD 03/01/17 Hydrocodone Bit-Acetaminophen (Hydrocodone Bit-APAP) 5-325MG Tablet, 1 TAB PO Q6H PRN for MODERATE PAIN LEVEL 4-6 for 7 Days, TAB Prov:FARHANA BROWN MD 03/01/17 Hydralazine Hcl* (Apresoline*) 50 Mg Tab, 100 MG PO Q8 for 28 Days, TAB Prov:FARHANA BROWN MD 03/01/17 Ipratropium-Albuterol (Ipratropium-Albuterol) 0.5-3 Mg/3 Ml Ampul.neb, 3 ML HHN Q6H RESP THERAPY PRN for SHORTNESS OF BREATH for 28 Days Prov:FARHANA BROWN MD 03/01/17 Lorazepam* (Lorazepam*) 1 Mg Tablet, 1 MG PO DAILY PRN for ANXIETY for 14 Days, #30 TAB Prov:FARHANA BROWN MD 03/01/17 Furosemide (Lasix) 40 Mg Tab, 40 MG PO DAILY for 30 Days, TAB Prov:FARHANA BROWN MD 03/01/17 Gabapentin (GABAPENTIN) 300 Mg/6 Ml Solution, 300 MG PO TID for 30 Days Prov:LETY SANTANA MD 02/22/17 Metoprolol Succinate* (Toprol XL*) 50 Mg Tab.er.24h, 50 MG PO DAILY for 30 Days Prov:LETY SANTANA MD 02/22/17 Atorvastatin* (Atorvastatin*) 40 Mg Tablet, 40 MG PO HS for 30 Days, TAB Prov:LETY SANTANA MD 02/22/17 Nitroglycerin* (Nitrostat*) 0.4 Mg Tab.subl, 1 TAB SL Q5M PRN for ANGINA for 28 Days Prov:FARHANA BROWN MD 08/20/16 Follow-up Plan PCP 1 week Primary Care Provider Carlito Reddy MD Pending Labs Laboratory Tests Test 06/29/18 14:35 06/30/18 05:26 Urine Color STRAW (YELLOW) Urine Clarity CLEAR (CLEAR) Urine pH 6.0 (5.0-9.0) Urine Specific Winfred 1.008 (1.003-1.030) Urine Ketones NEGATIVE mg/dL (NEGATIVE) Urine Nitrite NEGATIVE mg/dL (NEGATIVE) Urine Bilirubin NEGATIVE mg/dL (NEGATIVE) Urine Urobilinogen NEGATIVE mg/dL (NEGATIVE) Urine Leukocyte Esterase NEGATIVE Basilio/ul Urine Hemoglobin NEGATIVE mg/dL (NEGATIVE) Urine Glucose NEGATIVE mg/dL (NEGATIVE) Urine Total Protein NEGATIVE mg/dl (NEGATIVE) White Blood Count 5.1 10^3/ul (4.8-10.8) Red Blood Count 3.56 10^6/ul (4.70-6.10) Hemoglobin 9.9 g/dl (14.0-18.0) Hematocrit 30.7 % (42.0-52.0) Mean Corpuscular Volume 86.2 fl (82.0-101.0) Mean Corpuscular 27.8 pg (29.0-33.0) Hemoglobin Mean Corpuscular 32.2 g/dl (32.0-37.0) Hemoglobin Concent Red Cell Distribution 14.1 % (11.5-14.5) Width Platelet Count 201 10^3/UL (140-415) Mean Platelet Volume 12.3 fl (7.4-10.4) Immature Granulocytes % 0.200 % (0.001-0.429) Neutrophils % 63.7 % (39.0-77.0) Lymphocytes % 18.8 % (15.0-51.0) Monocytes % 12.4 % (0.0-11.0) Eosinophils % 4.3 % (0.0-7.0) Basophils % 0.6 % (0.0-2.0) Nucleated Red Blood Cells 0.0 /100WBC (0.0-0.0) % Immature Granulocytes # 0.010 10^3/ul (0.0-0.031) Neutrophils # 3.3 10^3/ul (1.6-7.5) Lymphocytes # 1.0 10^3/ul (0.8-2.9) Monocytes # 0.6 10^3/ul (0.3-0.9) Eosinophils # 0.2 10^3/ul (0.0-0.5) Basophils # 0.0 10^3/ul (0.0-0.1) Nucleated Red Blood Cells 0.0 10^3/ul (0.0-0.0) # Sodium Level 142 mmol/L (135-144) Potassium Level 3.7 mmol/L (3.5-5.1) Chloride Level 105 mmol/L (97-110) Carbon Dioxide Level 31 mmol/L (21-31) Anion Gap 6 (5-13) Blood Urea Nitrogen 23 mg/dl (7-20) Creatinine 1.48 mg/dl (0.61-1.24) Est Glomerular Filtrat 58 mL/min (>60) Rate mL/min Glucose Level 134 mg/dl (70-220) Calcium Level 8.6 mg/dl (8.4-10.2) TIKI BASURTO June 30, 2018 12:41
--- NOTE | 2018-06-30 14:28 | CONS ---
Consult Date/Type/Reason Admit Date/Time June 26, 2018 at 20:19 Initial Consult Date Requesting Provider: LETY SANTANA MD Date/Time of Note DATE: 06/30/18 TIME: 14:19 Subjective No acute events - BP in good range - dispo planned - pt feels better now. ROS: No fever, no chills, no nausea, no vomiting, no diarrhea/constipation No recent weight changes No chest pain, no PND, no orthopnea - mild sob , better now No dizziness, blurred vision No thirst, no heat or cold intolerance Objective Vitals Vital Signs Date Temp Pulse Resp B/P (MAP) Pulse Ox O2 O2 Flow FiO2 Time Delivery Rate 06/30/18 63 17 99 21 13:39 06/30/18 97.9 145/91 Room Air 10:57 (109) 06/27/18 2.0 17:28 Intake and Output 06/29/18 06/29/18 06/30/18 1515:00 23:00 07:00 IntakeIntake Total 1000 ml 500 ml BalanceBalance 1000 ml 500 ml Exam General: WN/WD/NAD, AOx 3 HEENT: Unicetric/atraumatic/EOMI (does not follow commands) NECK: JVD elevated, no thyromegaly Lymph: no lymphadenopathy HEART: regular with no S3, II/ systolic murmur at apex LUNGS: Coarse sounds ABD: soft, NT, ND, +BS : Intact Neuro: non focal SKIN: chronic changes EXT: trace edema Results/Medications Result Diagram: 06/30/18 0506/30/18 05 Results 24 hrs Laboratory Tests Test 06/29/18 14:35 06/30/18 05:26 Urine Color STRAW Urine Clarity CLEAR Urine pH 6.0 Urine Specific [place] 1.008 Urine Ketones NEGATIVE Urine Nitrite NEGATIVE Urine Bilirubin NEGATIVE Urine Urobilinogen NEGATIVE Urine Leukocyte Esterase NEGATIVE Urine Hemoglobin NEGATIVE Urine Glucose NEGATIVE Urine Total Protein NEGATIVE White Blood Count 5.1 Red Blood Count 3.56 L Hemoglobin 9.9 L Hematocrit 30.7 L Mean Corpuscular Volume 86.2 Mean Corpuscular Hemoglobin 27.8 L Mean Corpuscular Hemoglobin Concent 32.2 Red Cell Distribution Width 14.1 Platelet Count 201 Mean Platelet Volume 12.3 H Immature Granulocytes % 0.200 Neutrophils % 63.7 Lymphocytes % 18.8 Monocytes % 12.4 H Eosinophils % 4.3 Basophils % 0.6 Nucleated Red Blood Cells % 0.0 Immature Granulocytes # 0.010 Neutrophils # 3.3 Lymphocytes # 1.0 Monocytes # 0.6 Eosinophils # 0.2 Basophils # 0.0 Nucleated Red Blood Cells # 0.0 Sodium Level 142 Potassium Level 3.7 Chloride Level 105 Carbon Dioxide Level 31 Anion Gap 6 Blood Urea Nitrogen 23 H Creatinine 1.48 H Est Glomerular Filtrat Rate mL/min 58 L Glucose Level 134 Calcium Level 8.6 Home Meds Reported Medications Latanoprost (Latanoprost) 2.5 Ml Drops, 1 DROP BOTH EYES QHS, #1 BOTTLE 06/29/18 Trazodone Hcl* (Trazodone Hcl*) 100 Mg Tablet, 100 MG PO QHS PRN for NEEDED, #30 TAB 06/26/18 Paroxetine Hcl* (Paxil*) 20 Mg Tablet, 20 MG PO DAILY, TAB 06/26/18 Nitroglycerin* (Nitroglycerin* SL) 0.4 Mg Tab.subl, 0.4 MG SL Q5MIN PRN for CHEST PAIN, BOTTLE 06/26/18 Metformin Hcl* (Metformin Hcl*) 500 Mg Tablet, 500 MG PO WITH BREAKFAST DINNE, #60 TAB 06/26/18 Lorazepam* (Lorazepam*) 1 Mg Tablet, 1 MG PO HS PRN for NEEDED, #30 TAB 06/26/18 Loratadine* (Loratadine*) 10 Mg Tablet, 10 MG PO DAILY, #30 TAB 06/26/18 Furosemide* (Furosemide*) 40 Mg Tablet, 40 MG PO DAILY, TAB 06/26/18 Hydralazine Hcl* (Hydralazine Hcl*) 25 Mg Tab, 25 MG PO Q8, #90 TAB 06/26/18 Gabapentin* (Gabapentin*) 300 Mg Capsule, 300 MG PO TID, #90 CAP 06/26/18 Tamsulosin Hcl* (Flomax*) 0.4 Mg Cap.er.24h, 0.4 MG PO HS, CAP 06/26/18 Doxazosin Mesylate* (Doxazosin Mesylate*) 8 Mg Tablet, 8 MG PO HS, TAB 06/26/18 Carvedilol* (Carvedilol*) 25 Mg Tablet, 25 MG PO BID, #60 TAB 06/26/18 Benazepril Hcl* (Benazepril Hcl*) 20 Mg Tablet, 20 MG PO BID, #60 TAB 06/26/18 Atorvastatin Calcium (Atorvastatin Calcium) 10 Mg Tablet, 10 MG PO QHS, #30 TAB 06/26/18 Aspirin* (Aspirin* EC) 81 Mg Tablet.dr, 81 MG PO DAILY, TAB 06/26/18 Amlodipine Besylate* (Amlodipine Besylate*) 10 Mg Tablet, 10 MG PO DAILY, #30 TAB 06/26/18 Ipratropium-Albuterol (Ipratropium-Albuterol) 0.5-3 Mg/3 Ml Ampul.neb, 3 ML INHALATION Q6, #30 VIAL 06/26/18 Discontinued Reported Medications Doxazosin Mesylate* (Doxazosin Mesylate*) 4 Mg Tablet, 4 MG PO HS, TAB 02/26/17 Benazepril Hcl* (Benazepril Hcl*) 10 Mg Tablet, 10 MG PO DAILY, #30 TAB 02/26/17 Amlodipine Besylate* (Norvasc*) 5 Mg Tablet, 5 MG PO BID, TAB 02/26/17 Atorvastatin Calcium (Atorvastatin Calcium) 10 Mg Tablet, 10 MG PO QHS, #30 TAB 02/26/17 Albuterol Sulfate* (Ventolin HFA*) 18 Gm Hfa.aer.ad, 2 PUFF INHALATION Q6H PRN for WHEEZING AND SOB, #1 INHALER 02/18/17 Trazodone Hcl* (Trazodone Hcl*) 150 Mg Tablet, 150 MG PO QHS, #30 TAB 02/18/17 Tamsulosin Hcl* (Flomax*) 0.4 Mg Cap.er.24h, 0.4 MG PO HS, CAP 02/18/17 Paroxetine Hcl* (Paxil*) 20 Mg Tablet, 20 MG PO DAILY, TAB 02/18/17 Loratadine* (Loratadine*) 10 Mg Tablet, 10 MG PO DAILY, #30 TAB 02/18/17 Latanoprost (Latanoprost) 2.5 Ml Drops, 1 DROP BOTH EYES QHS, #1 BOTTLE 02/18/17 Glimepiride* (Glimepiride*) 2 Mg Tablet, 2 MG PO WITH BREAKFAST DINNE, TAB 02/18/17 Fluticasone Propionate* (Fluticasone Propionate* Nasal) 50 Mcg/Ventura - 16 Gm [place].susp, 2 SPRAYS NASAL DAILY, #1 BOTTLE TO EACH NOSTRIL 02/18/17 Finasteride* (Finasteride*) 5 Mg Tablet, 5 MG PO QHS, TAB 08/15/16 Fenofibrate, Micronized (Fenofibrate) 54 Mg Tablet, 54 MG PO DAILY, TAB 08/15/16 Docusate Sodium* (Dok*) 100 Mg Tablet, 100 MG PO DAILY, #30 CAP 08/15/16 Meclizine Hcl* (Meclizine Hcl*) 25 Mg Tablet, 25 MG PO DAILY PRN for DIZZINESS, TAB 08/15/16 Discontinued Scripts Levofloxacin* (Levaquin*) 500 Mg Tablet, 500 MG PO DAILY@06 for 10 Days, TAB Prov:LETY SANTANA MD 10/29/17 Prednisone* (Prednisone*) 20 Mg Tab, 20 MG PO DAILY for 10 Days, TAB Prov:LETY SANTANA MD 10/29/17 Famotidine* (Pepcid*) 20 Mg Tablet, 20 MG PO BID, #60 TAB Prov:FARHANA BROWN MD 03/01/17 Hydrocodone Bit-Acetaminophen (Hydrocodone Bit-APAP) 5-325MG Tablet, 1 TAB PO Q6H PRN for MODERATE PAIN LEVEL 4-6 for 7 Days, TAB Prov:FARHANA BROWN MD 03/01/17 Hydralazine Hcl* (Apresoline*) 50 Mg Tab, 100 MG PO Q8 for 28 Days, TAB Prov:FARHANA BROWN MD 03/01/17 Ipratropium-Albuterol (Ipratropium-Albuterol) 0.5-3 Mg/3 Ml Ampul.neb, 3 ML HHN Q6H RESP THERAPY PRN for SHORTNESS OF BREATH for 28 Days Prov:FARHANA BROWN MD 03/01/17 Lorazepam* (Lorazepam*) 1 Mg Tablet, 1 MG PO DAILY PRN for ANXIETY for 14 Days, #30 TAB Prov:FARHANA BROWN MD 03/01/17 Furosemide (Lasix) 40 Mg Tab, 40 MG PO DAILY for 30 Days, TAB Prov:FARHANA BROWN MD 03/01/17 Gabapentin (GABAPENTIN) 300 Mg/6 Ml Solution, 300 MG PO TID for 30 Days Prov:LETY SANTANA MD 02/22/17 Metoprolol Succinate* (Toprol XL*) 50 Mg Tab.er.24h, 50 MG PO DAILY for 30 Days Prov:LETY SANTANA MD 02/22/17 Atorvastatin* (Atorvastatin*) 40 Mg Tablet, 40 MG PO HS for 30 Days, TAB Prov:LETY SANTANA MD 02/22/17 Nitroglycerin* (Nitrostat*) 0.4 Mg Tab.subl, 1 TAB SL Q5M PRN for ANGINA for 28 Days Prov:FARHANA BROWN MD 08/20/16 Medications Current Medications Amlodipine Besylate (Norvasc) 10 mg DAILY PO Last administered on 06/30/18 09:09; Admin Dose 10 MG; Start 06/27/18 at 09:00 Aspirin (Halfprin) 81 mg DAILY PO Last administered on 06/30/18 09:09; Admin Dose 81 MG; Start 06/27/18 at 09:00 Atorvastatin Calcium (Lipitor) 10 mg QHS PO Last administered on 06/29/18 21:33; Admin Dose 10 MG; Start 06/27/18 at 21:00 Benazepril HCl (Lotensin) 20 mg BID PO Last administered on 06/30/18 09:09; Admin Dose 20 MG; Start 06/27/18 at 09:00 Carvedilol (Coreg) 25 mg BID PO Last administered on 06/29/18 21:34; Admin Dose 25 MG; Start 06/27/18 at 09:00 Doxazosin Mesylate (Cardura) 8 mg HS PO Last administered on 06/29/18 21:33; Admin Dose 8 MG; Start 06/27/18 at 21:00 Furosemide (Lasix) 40 mg DAILY PO Last administered on 06/30/18 09:09; Admin Dose 40 MG; Start 06/27/18 at 09:00 Gabapentin (Neurontin) 300 mg TID PO Last administered on 06/30/18 12:07; Admin Dose 300 MG; Start 06/27/18 at 09:00 Hydralazine HCl (Apresoline) 25 mg Q8 PO Last administered on 06/30/18 05:28; Admin Dose 25 MG; Start 06/27/18 at 06:00 Albuterol/ Ipratropium (Duoneb) 3 ml Q6H RESP THERAPY INH Last administered on 06/30/18 13:39; Admin Dose 3 ML; Start 06/27/18 at 02:00 Loratadine (Claritin) 10 mg DAILY PO Last administered on 06/30/18 09:11; Admin Dose 10 MG; Start 06/27/18 at 09:00 Lorazepam (Ativan) 1 mg HS PRN PO NEEDED Last administered on 06/28/18 04:16; Admin Dose 1 MG; Start 06/26/18 at 22:30 Nitroglycerin (Nitroglycerin (Sl Tab) 0.4 Mg) 0.4 tab [id number] PRN SL CHEST PAIN; Start 06/26/18 at 22:30 Paroxetine HCl (Paxil) 20 mg DAILY PO Last administered on 06/30/18 09:09; Admin Dose 20 MG; Start 06/27/18 at 09:00 Tamsulosin HCl (Flomax) 0.4 mg HS PO Last administered on 06/29/18 21:33; Admin Dose 0.4 MG; Start 06/27/18 at 21:00 Trazodone HCl (Desyrel) 100 mg QHS PRN PO NEEDED Last administered on 06/29/18 21:42; Admin Dose 100 MG; Start 06/26/18 at 22:30 IV Flush (NS 3 ml) 3 ml PER PROTOCOL IV ; Start 06/26/18 at 23:00 Ondansetron HCl (Zofran Inj) 4 mg Q6H PRN IV NAUSEA/VOMITING; Start 06/26/18 at 23:00 Acetaminophen (Tylenol Tab) 650 mg Q6H PRN PO .PAIN 1-3 OR TEMP Last administered on 06/27/18 18:41; Admin Dose 650 MG; Start 06/26/18 at 23:00 Acetaminophen (Tylenol Supp) 650 mg Q6H PRN [place] .PAIN 1-3 OR TEMP; Start 06/26/18 at 23:00 Docusate Sodium (Colace) 100 mg Q12H PRN PO .CONSTIPATION; Start 06/26/18 at 23:00 Magnesium Hydroxide (Milk Of Mag) 30 ml DAILY PRN PO .CONSTIPATION Last administered on 06/29/18 08:34; Admin Dose 30 ML; Start 06/26/18 at 23:00 Bisacodyl (Dulcolax) 5 mg DAILY PRN PO .CONSTIPATION Last administered on 06/28/18 08:57; Admin Dose 5 MG; Start 06/26/18 at 23:00 Docusate Sodium (Colace) 100 mg BID PO Last administered on 06/30/18 09:09; Admin Dose 100 MG; Start 06/27/18 at 15:00 Polyethylene Glycol (Miralax) 17 gm DAILY PRN PO CONSTIPATION Last administered on 06/27/18 18:41; Admin Dose 17 GM; Start 06/27/18 at 15:00 Pantoprazole (Protonix Tab) 40 mg DAILY@06 PO Last administered on 06/30/18 05:28; Admin Dose 40 MG; Start 06/28/18 at 06:00 Latanoprost (Xalatan) 1 drop QHS BOTH EYES Last administered on 06/29/18 21:38; Admin Dose 1 DROP; Start 06/29/18 at 21:00 Enoxaparin Sodium (Lovenox) 40 mg DAILY SC Last administered on 06/30/18 09:11 ; Admin Dose 40 MG; Start 06/29/18 at 14:30 Assessment/Plan Hospital Course (Demo Recall) 1. Hypertension. Blood pressure well controlled now. Continue to monitor his cardiac status closely. Better now. 2. History of heart failure with preserved ejection fraction. The patient appears to be fairly euvolemic by my examination.Euvolemic now. 3. Renal insufficiency. Creatinine better now. Better now - hydrate. 4. Chest pain. Troponins are negative. The patient did not rule in for acute ischemia. There is no evidence of acute ischemic evidence. Neurology follow. 5. TIA versus CVA. MRI did not show any acute CVA. Neurology follows. Consider Plavix if indicated. SULY MARCOS MD June 30, 2018 14:28
== END 2018-06-30 14:48 | disposition home health service (06) | DRG 69 ==
LOC: E/R 18:50 → 6WM 20:19
PROVIDERS: ADMIT Internal Medicine Nephrology; ATTEND Internal Medicine Nephrology
DX: G45.9 Transient cerebral ischemic attack, unspecified (principal); I69.351 Hemiplegia and hemiparesis following cerebral infarction affecting right dominant side; I13.0 Hypertensive heart and chronic kidney disease with heart failure and stage 1 through stage 4 chronic kidney disease, or unspecified chronic kidney disease; E87.0 Hyperosmolality and hypernatremia; D63.1 Anemia in chronic kidney disease; E78.5 Hyperlipidemia, unspecified; E11.22 Type 2 diabetes mellitus with diabetic chronic kidney disease; E66.9 Obesity, unspecified; F41.9 Anxiety disorder, unspecified; I50.9 Heart failure, unspecified; J44.9 Chronic obstructive pulmonary disease, unspecified; N18.3 Chronic kidney disease, stage 3 (moderate); R29.712 NIHSS score 12; R47.1 Dysarthria and anarthria; R20.0 Anesthesia of skin; Z79.84 Long term (current) use of oral hypoglycemic drugs; Z68.31 Body mass index [BMI] 31.0-31.9, adult
CPT/HCPCS: 36415; 70450; 70496; 70498; 70551; 71045; 80048; 80053; 80061; 80307; 81003; 82550; 82553; 82962; 83036; 84484; 85025; 85610; 85651; 85730; 86592; 92610; 93005; 93306; 94640; 94660; 97116; 97161; 97167; 97530; C9113; J1650; J3480

== ENCOUNTER 2018-08-20 06:26 | Day surgery (SDC) | payer OTHER ==
[~2018-08-20] VITALS: Ht 170.2 cm; Wt 99.5 kg
[~2018-08-20 06:26] MED LIST changes: -ALBU18HF INHALATION; +AMLO-147 PO; -AMLO5TAB4 PO; +ASPI-817 PO; -ATOR40TA68 PO; -BENA10TA4 PO; +BENA20TA4 PO; +CARV25TA79 PO; -DOCU100T PO; -DOXA4TAB3 PO; +DOXA8TAB65 PO; -FAMO-96 PO; -FENO54TA7 PO; -FINA5TAB4 PO; -FLUT16SP17 NASAL; +GABA300C16 PO; -GABA300S PO; -GLIM2TAB PO; -HYDR-3601 PO; +HYDR-3671 PO; -HYDR-3672 PO; -IPRA3AMP29 HHN; +IPRA3AMP29 INHALATION; -LEVO500T48 PO; -MECL-77 PO; -METO-319 PO; +NITR0.4T32 SL; -NITR0.4T39 SL; -PRED20TA PO; +TRA100 PO; -TRAZ150T65 PO
[2018-08-20] MEDS ORDERED: SOD CHLORIDE 0.9% 1,000 ML IV SCH (07:00)
[2018-08-20 07:26] VITALS: Ht 170.2 cm; Wt 99.5 kg
[2018-08-20 07:27] VITALS: BP 154/82; PULSE 74; RESP 18
== END 2018-08-20 08:10 | disposition home or self-care (01) ==
LOC: SDS 06:26
PROVIDERS: ATTEND Internal Medicine Cardiovascular Disease
DX: I73.9 Peripheral vascular disease, unspecified (principal); Z53.9 Procedure and treatment not carried out, unspecified reason; I10 Essential (primary) hypertension; E11.9 Type 2 diabetes mellitus without complications; E78.5 Hyperlipidemia, unspecified; Z86.73 Personal history of transient ischemic attack (TIA), and cerebral infarction without residual deficits
CPT/HCPCS: 80053; 82962; 85025; 85610; 85730; J7030

== ENCOUNTER 2018-08-29 08:56 | Day surgery (SDC) | payer OTHER ==
[~2018-08-29] VITALS: Ht 170.2 cm; Wt 98.3 kg
[2018-08-29] VITALS (15 sets, daily range): BP systolic 131–190; BP diastolic 68–97; PULSE 58–78; RESP 14–24; Ht 170.2 cm; Wt 98.3 kg
[2018-08-29] MEDS ORDERED: SOD CHLORIDE 0.9% 1,000 ML IV SCH ×2 (10:30→13:32)
[2018-08-29] MEDS ORDERED: IODIXANOL LOCM 100 ML BTL ONE ×2 (12:06→12:07)
[2018-08-29] MEDS ORDERED: HEPARIN 1000 UNITS/ML 10 ML INJ ONE (12:06)
[2018-08-29] MEDS ORDERED: LIDOCAINE 1% (MDV) 20 ML INJ ONE (12:06)
[2018-08-29] MEDS ORDERED: MIDAZOLAM 1 MG/ML 2 ML INJ ONE (12:07)
[2018-08-29] MEDS ORDERED: FENTAnyl 50 MCG/ML VIAL ONE (12:07)
[2018-08-29] MEDS ORDERED: SOD CHLORIDE 0.9% 500 ML ONE (12:07)
--- NOTE | 2018-08-29 13:35 | PDOCDIS ---
Discharge Instructions CONDITION [id number] Patient Condition: [id number] Good HOME CARE INSTRUCTIONS: [id number] Diet Instructions: [id number] Low Fat /Cholesterol ACTIVITY: [id number] Activity Restrictions: [id number] Slowly Increase Activity Avoid heavy lifting (Do not lift greater than 10 pounds for 3 days) Do not Drive (x 3 days) FOLLOW UP/APPOINTMENTS Follow-up Plan Follow-up with cardiology Carlito Cerda DO Aug 29, 2018 13:35
--- NOTE | 2018-08-29 13:43 | OPR ---
Date/Time of Note Date/Time of Note DATE: 08/29/18 TIME: 13:36 Operative Report Procedure Date: Aug 29, 2018 Preoperative Diagnosis Lifestyle limiting claudication Postoperative Diagnosis Obstructive peripheral arterial disease Operation/Procedure Performed Distal abdominal aortogram and bilateral lower extremity runoff Second order catheter placement Interpretation and supervision of angiogram Conscious sedation Right femoral artery approach using ultrasound guidance Surgeon see signature line Automatic Log Cut Off Sawyer Drawer Hardware Worker staff Anesthesia Type: moderate sedation Estimated Blood Loss: minimal Transfusion none Specimen None Grafts/Implants none Tubes/Drains Contrast use 85 mL's Complications none Pt Condition Post Procedure: stable Procedure Description Patient brought to the Drawer Hardware Worker after informed consent. Patient prepped and draped as per protocol. Right femoral artery access was obtained using ul trasound guidance. A 5 German sheath was placed. Segmental DSA angiogram of right lower extremity performed. We then went up with an Omni Flush and did a distal abdominal aortogram. We then went down the left leg using a rob cross catheter and Glidewire. Segmental angiograms of the left lower extremity were performed. All catheters were removed. There was no immediate complications Findings Distal abdominal aorta with no significant disease Right common iliac artery with mild disease Right external iliac with mid 60% stenosis Right common femoral artery with mild disease Right profunda with moderate to severe diffuse disease Right SFA with ostial 80% stenosis, mid 90% stenosis, distal 70% stenosis Right popliteal mid 40% stenosis Right anterior tibial 100% occlusion and reconstitutes in the mid vessel via collaterals and perfusing down to the foot Right posterior tibial with proximal 70% stenosis Right peroneal 100% stenosis and reconstitutes in the mid vessel with collaterals going to the foot Left common iliac with mild disease Left external iliac with mild disease Left common femoral artery with mild disease Left profunda with moderate to severe diffuse disease Left SFA with proximal 20% stenosis, mid 30%, distal 30% stenosis Left popliteal mild disease Left anterior tibial with severe diffuse disease Left peroneal with 100% occlusion proximally Left posterior tibial with mild to moderate diffuse disease. There are multiple collaterals going down to the ankle with two-vessel patent vessels down to the foot Recommendations Aggressive medical management, discuss with patient regarding intervention of right SFA If agreeable, staged procedure given elevated creatinine Carlito Cerda DO Aug 29, 2018 13:43
[2018-08-29] MEDS ORDERED: ACETAMINOPHEN 325 MG TAB PO PRN (14:00)
[2018-08-29] MEDS ORDERED: AL HYDROX/MG HYDROX/SIMETH 30 ML CUP PO PRN (14:00)
[2018-08-29] MEDS ORDERED: ONDANSETRON 4 MG INJ IV PRN (14:00)
[2018-08-29] MEDS ORDERED: AMLODIPINE 10 MG TAB PO STA (16:21)
[2018-08-30] MEDS ORDERED: ACET500C5 PO (10:39)
== END 2018-08-29 18:30 | disposition home or self-care (01) ==
LOC: SDS 08:56
PROVIDERS: ATTEND Internal Medicine Cardiovascular Disease
DX: I73.9 Peripheral vascular disease, unspecified (principal); E11.9 Type 2 diabetes mellitus without complications
CPT/HCPCS: 36246; 75630; 80053; 82962; 85025; 85610; 85730; C1769; C1887; C1894; J1644; J2250; J3010; J7040; Q9967

== ENCOUNTER 2018-08-30 09:13 | Emergency (ER) | payer OTHER ==
[~2018-08-30] VITALS: Ht 170.2 cm; Wt 99.0 kg
[2018-08-30 09:15] VITALS: BP 138/80; PULSE 78; RESP 16; Ht 170.2 cm; Wt 99.0 kg
--- NOTE | 2018-08-30 09:37 | ERD ---
ER Documentation Chief Complaint Chief Complaint pt is bib self with c/o left hand pain and swelling s/p falling down HPI This is a 63-year-old male who presents with pain in his left hand and wrist after he fell yesterday. He is right-hand dominant. He states he fell because he was getting up and got dizzy and fell. He denies any head injury or cervical spine pain no loss of consciousness. No nausea or vomiting. He did have an aortogram performed here yesterday. No chest pain palpitations diaphoresis or shortness of breath. ROS All systems reviewed and are negative except as per history of present illness. Medications Home Meds Reported Medications Latanoprost (Latanoprost) 2.5 Ml Drops, 1 DROP BOTH EYES QHS, #1 BOTTLE 06/29/18 Trazodone Hcl* (Trazodone Hcl*) 100 Mg Tablet, 100 MG PO QHS PRN for NEEDED, #30 TAB 06/26/18 Paroxetine Hcl* (Paxil*) 20 Mg Tablet, 20 MG PO DAILY, TAB 06/26/18 Nitroglycerin* (Nitroglycerin* SL) 0.4 Mg Tab.subl, 0.4 MG SL Q5MIN PRN for CHEST PAIN, BOTTLE 06/26/18 Lorazepam* (Lorazepam*) 1 Mg Tablet, 1 MG PO HS PRN for NEEDED, #30 TAB 06/26/18 Loratadine* (Loratadine*) 10 Mg Tablet, 10 MG PO DAILY, #30 TAB 06/26/18 Furosemide* (Furosemide*) 40 Mg Tablet, 40 MG PO DAILY, TAB 06/26/18 Hydralazine Hcl* (Hydralazine Hcl*) 25 Mg Tab, 25 MG PO Q8, #90 TAB 06/26/18 Gabapentin* (Gabapentin*) 300 Mg Capsule, 300 MG PO TID, #90 CAP 06/26/18 Tamsulosin Hcl* (Flomax*) 0.4 Mg Cap.er.24h, 0.4 MG PO HS, CAP 06/26/18 Doxazosin Mesylate* (Doxazosin Mesylate*) 8 Mg Tablet, 8 MG PO HS, TAB 06/26/18 Carvedilol* (Carvedilol*) 25 Mg Tablet, 25 MG PO BID, #60 TAB 06/26/18 Benazepril Hcl* (Benazepril Hcl*) 20 Mg Tablet, 20 MG PO BID, #60 TAB 06/26/18 Atorvastatin Calcium (Atorvastatin Calcium) 10 Mg Tablet, 10 MG PO QHS, #30 TAB 06/26/18 Aspirin* (Aspirin* EC) 81 Mg Tablet.dr, 81 MG PO DAILY, TAB 06/26/18 Amlodipine Besylate* (Amlodipine Besylate*) 10 Mg Tablet, 10 MG PO DAILY, #30 TAB 06/26/18 Ipratropium-Albuterol (Ipratropium-Albuterol) 0.5-3 Mg/3 Ml Ampul.neb, 3 ML INHALATION Q6, #30 VIAL 06/26/18 Allergies Allergies: Coded Allergies: No Known Drug Allergies (Unverified Allergy, Unknown, 08/29/18) PMhx/Soc History of Surgery: No Anesthesia Reaction: No Hx Neurological Disorder: No Hx Respiratory Disorders: Yes (COPD) Hx Cardiac Disorders: Yes (HTN,HLP, TIA, CVA , CHF, PVD) Hx Psychiatric Problems: No Hx Miscellaneous Medical Probl: No Hx Alcohol Use: No Hx Substance Use: No Hx Tobacco Use: No FmHx Family History: No diabetes Physical Exam Vitals Vital Signs Date Temp Pulse Resp B/P (MAP) Pulse Ox O2 O2 Flow FiO2 Time Delivery Rate 08/30/18 98.3 78 16 138/80 99 09:15 (99) Physical Exam Const: No acute distress Head: Atraumatic Eyes: Normal Conjunctiva ENT: Normal External Ears, Nose and Mouth. Neck: Full range of motion. No meningismus. Resp: Clear to auscultation bilaterally Cardio: Regular rate and rhythm, no murmurs Hand -left Skin: Swelling to dorsal surface of left hand Compartments: Soft Sensation: Intact shoulder/pinky/middle finger/thumb web space Bones: Tender to palpation over base of second through fifth metacarpals Snuffbox: Nontender Joints: No effusion Wrist: Flex/Ext: Normal Uln/Radial deviation: Normal Pron/Supination Normal Finger: Flex/Ext: Normal Add/abd: Normal Thumb: Flex/Ext: Normal Opposition: Normal Thumbs up: Normal Procedures/MDM Patient has left hand and wrist pain after fall yesterday. Patient does state that he fell because he was dizzy. This is happened before. Reviewed the case with Dr. Edgar and decision was made to order x-rays of his left hand and wrist. The patient's x-ray reveals a mildly displaced comminuted fracture of the distal and proximal third metacarpal. Also shows punctate radiopaque foreign body within the soft tissues radial and volar to the second distal phalanx however there is no open wound or evidence of this on physical exam. He was placed in a sugar tong splint to immobilize his hand. He was given copy of his x-ray report and CD with images and outpatient referral to orthopedics. He can take anti-inflammatories at home for pain. Patient counseled regarding my diagnostic impression and care plan. Prior to discharge all questions answered. Pt agrees with treatment plan and understands strict return precautions. Pt is instructed to follow up with primary care provider within 24-48 hours. Precautionary instructions provided including instructions to return to the ER if not improving or for any worsening or changing symptoms or concerns. Departure Diagnosis: Primary Impression: Hand fracture Condition: Stable TORI MCNALLY PA-C Aug 30, 2018 09:37
[2018-08-30] MEDS ORDERED: ACET500C5 PO (10:39)
== END 2018-08-30 10:58 | disposition home or self-care (01) ==
LOC: FTE 09:13
DX: S62.393A Other fracture of third metacarpal bone, left hand, initial encounter for closed fracture (principal); I11.0 Hypertensive heart disease with heart failure; I50.9 Heart failure, unspecified; J44.9 Chronic obstructive pulmonary disease, unspecified; W18.30XA Fall on same level, unspecified, initial encounter; Y92.9 Unspecified place or not applicable; Z79.82 Long term (current) use of aspirin; Z86.73 Personal history of transient ischemic attack (TIA), and cerebral infarction without residual deficits

== ENCOUNTER 2018-10-18 14:18 | Inpatient (IN) | payer OTHER ==
[~2018-10-18] VITALS: Ht 167.6 cm; Wt 97.0 kg
[~2018-10-18 14:18] MED LIST changes: +ACET500C5 PO; +METF500T24 PO; +SITA50TA2 PO
[2018-10-18] MEDS ORDERED: ASPIRIN 325 MG TAB PO STA (15:04)
[2018-10-18] MEDS ORDERED: morphine 4 MG/ML VIAL IV STA (15:04)
[2018-10-18] MEDS ORDERED: NITROGLYCERIN 2% 1 GM OINT PKT TD STA (15:04)
[2018-10-18] MEDS ORDERED: ONDANSETRON 4 MG INJ IV STA (15:04)
[2018-10-18] MEDS ORDERED: ACCU-CHEK XX ONE (16:30)
[2018-10-18] MEDS ORDERED: INSULIN LISPRO 100 UNIT/ML VIAL SC ONE (16:30)
[2018-10-18] MEDS ORDERED: ONDANSETRON 4 MG INJ IV PRN (17:30)
[2018-10-18] MEDS ORDERED: ACETAMINOPHEN 325 MG TAB PO PRN (17:30)
[2018-10-18 21:13] VITALS: BP 112/58; PULSE 85; RESP 18
[2018-10-18 22:00] VITALS: Ht 167.6 cm; Wt 97.0 kg
[2018-10-18] MEDS ORDERED: NITROGLYCERIN (SL) 0.4 MG TAB SL PRN (23:00)
[2018-10-18] MEDS ORDERED: LORATADINE 10 MG TAB PO PRN (23:00)
[2018-10-18 23:46] VITALS: BP 117/64; PULSE 68; RESP 18
[2018-10-19] VITALS (7 sets, daily range): BP systolic 117–141; BP diastolic 69–93; PULSE 61–92; RESP 18–22
[2018-10-19] MEDS: INSULIN ASPART [NOVOLOG] 3 ML PEN SC SCH ×4 (07:55→20:06)
[2018-10-19] MEDS ORDERED: BENAZEPRIL 20 MG TAB PO ONE (07:55)
[2018-10-19] MEDS: GABAPENTIN 300 MG CAP PO SCH ×3 (09:46→20:05)
[2018-10-19] MEDS: AMLODIPINE 10 MG TAB PO SCH (09:46)
[2018-10-19] MEDS: FUROSEMIDE 40 MG TAB PO SCH (09:47)
[2018-10-19] MEDS: ASPIRIN 81 MG TAB PO SCH (09:47)
[2018-10-19] MEDS: PAROXETINE 20 MG TAB PO SCH (09:48)
[2018-10-19] MEDS ORDERED: GLUCOSE GEL 15 GRAM TUBE BUCCAL PRN (12:30)
[2018-10-19] MEDS ORDERED: GLUCAGON 1 MG INJ IM PRN (12:30)
[2018-10-19] MEDS ORDERED: GLUCOSE GEL 15 GRAM TUBE PO PRN ×2 (12:30)
[2018-10-19] MEDS ORDERED: DEXTROSE 50% 50 ML SYRINGE IV PRN ×2 (12:30)
[2018-10-19] MEDS: ENOXAPARIN 40 MG/0.4 ML SYG SC SCH (12:35)
[2018-10-19] MEDS: LINAGLIPTIN 5 MG TABLET PO SCH (12:42)
[2018-10-19] MEDS: DOXAZOSIN 4 MG TAB PO SCH (20:05)
[2018-10-19] MEDS: ATORVASTATIN 10 MG TAB PO SCH (20:05)
[2018-10-19] MEDS: TAMSULOSIN (SR) 0.4 MG CAP PO SCH (20:05)
[2018-10-19] MEDS: LATANOPROST 0.005% 2.5 ML OPH BOTH EYES SCH (20:11)
[2018-10-19] MEDS: traZODone 100 MG TAB PO PRN (22:19)
[2018-10-20] VITALS (12 sets, daily range): BP systolic 87–126; BP diastolic 53–71; PULSE 52–76; RESP 18–22
[2018-10-20] MEDS: INSULIN ASPART [NOVOLOG] 3 ML PEN SC SCH ×4 (07:55→20:32)
[2018-10-20] MEDS: GABAPENTIN 300 MG CAP PO SCH ×3 (08:50→20:25)
[2018-10-20] MEDS: ASPIRIN 81 MG TAB PO SCH (08:50)
[2018-10-20] MEDS: PAROXETINE 20 MG TAB PO SCH (08:50)
[2018-10-20] MEDS: LINAGLIPTIN 5 MG TABLET PO SCH (08:50)
[2018-10-20] MEDS: FUROSEMIDE 40 MG TAB PO SCH (08:50)
[2018-10-20] MEDS: AMLODIPINE 10 MG TAB PO SCH (08:51)
[2018-10-20] MEDS: ENOXAPARIN 40 MG/0.4 ML SYG SC SCH (08:55)
[2018-10-20] MEDS ORDERED: POLYETHYLENE GLYCOL 17 GM PACKET PO PRN (12:00)
[2018-10-20] MEDS ORDERED: DOCUSATE SODIUM 250 MG CAP PO PRN (12:00)
[2018-10-20] MEDS: ATORVASTATIN 10 MG TAB PO SCH (20:25)
[2018-10-20] MEDS: MAGNESIUM CHLORIDE (SR) 64 MG TAB PO SCH (20:26)
[2018-10-20] MEDS: DOXAZOSIN 4 MG TAB PO SCH (20:26)
[2018-10-20] MEDS: TAMSULOSIN (SR) 0.4 MG CAP PO SCH (20:26)
[2018-10-20] MEDS: LATANOPROST 0.005% 2.5 ML OPH BOTH EYES SCH (20:36)
[2018-10-20] MEDS: traZODone 100 MG TAB PO PRN (22:41)
[2018-10-21 01:00] VITALS: PULSE 70
[2018-10-21 03:57] VITALS: BP 103/57; PULSE 63; RESP 18
[2018-10-21 07:14] VITALS: BP 132/77; PULSE 79; RESP 18
[2018-10-21] MEDS: INSULIN ASPART [NOVOLOG] 3 ML PEN SC SCH ×2 (08:15→12:11)
[2018-10-21] MEDS: PAROXETINE 20 MG TAB PO SCH (08:57)
[2018-10-21] MEDS: GABAPENTIN 300 MG CAP PO SCH ×2 (08:57→13:14)
[2018-10-21] MEDS: ASPIRIN 81 MG TAB PO SCH (08:57)
[2018-10-21] MEDS: FUROSEMIDE 40 MG TAB PO SCH (08:57)
[2018-10-21] MEDS: AMLODIPINE 10 MG TAB PO SCH (08:58)
[2018-10-21] MEDS: LINAGLIPTIN 5 MG TABLET PO SCH (08:58)
[2018-10-21] MEDS: MAGNESIUM CHLORIDE (SR) 64 MG TAB PO SCH (08:58)
[2018-10-21] MEDS: ENOXAPARIN 40 MG/0.4 ML SYG SC SCH (09:05)
[2018-10-21 11:11] VITALS: BP 115/66; PULSE 62; RESP 18
[2018-10-21 13:13] VITALS: BP 132/91; PULSE 67; RESP 18
== END 2018-10-21 15:12 | disposition home or self-care (01) | DRG 313 ==
LOC: E/R 14:18 → TEL 17:13 → EDBEDREQ 18:43 → OBSVTOIN 10-20 16:15
PROVIDERS: ADMIT Internal Medicine Nephrology; ATTEND Internal Medicine Nephrology
DX: R07.2 Precordial pain (principal); I50.33 Acute on chronic diastolic (congestive) heart failure; I13.0 Hypertensive heart and chronic kidney disease with heart failure and stage 1 through stage 4 chronic kidney disease, or unspecified chronic kidney disease; E11.65 Type 2 diabetes mellitus with hyperglycemia; E78.5 Hyperlipidemia, unspecified; J44.9 Chronic obstructive pulmonary disease, unspecified; E11.22 Type 2 diabetes mellitus with diabetic chronic kidney disease; N18.3 Chronic kidney disease, stage 3 (moderate); N40.0 Benign prostatic hyperplasia without lower urinary tract symptoms; G47.33 Obstructive sleep apnea (adult) (pediatric); D64.9 Anemia, unspecified; Z79.4 Long term (current) use of insulin; Z79.82 Long term (current) use of aspirin; Z98.61 Coronary angioplasty status; Z87.891 Personal history of nicotine dependence; Z86.73 Personal history of transient ischemic attack (TIA), and cerebral infarction without residual deficits
CPT/HCPCS: 71045; 80048; 80053; 82962; 83036; 83540; 83735; 84484; 84560; 85025; 85610; 85730; 93005; 94660; 96372; 96374; 96375; 99217; G0378; J1650; J1815; J2270; J2405

== ENCOUNTER 2018-12-15 05:27 | Inpatient (IN) | payer OTHER ==
[2018-12-15] VITALS (9 sets, daily range): BP systolic 99–150; BP diastolic 64–92; PULSE 66–130; RESP 18–20; Ht 177.8 cm; Wt 92.0 kg
[~2018-12-15] VITALS: Ht 177.8 cm; Wt 92.0 kg
[~2018-12-15 05:27] MED LIST changes: -ACET500C5 PO; +AMIO200T4 PO; +APIX5TAB PO; -BENA20TA4 PO; -LATA2.5D2 BOTH EYES; -METF500T24 PO
[2018-12-15] MEDS ORDERED: DILTIAZEM-D5W 125MG/125ML DRIP 125 ML IV STA (05:28)
[2018-12-15] MEDS ORDERED: MAGNESIUM SULFATE 2 GM/50 ML 50 ML IVPB STA (05:28)
[2018-12-15] MEDS ORDERED: SOD CHLORIDE 0.9% 500 ML IV STA (05:28)
[2018-12-15] MEDS ORDERED: DILTIAZEM 25 MG INJ IV STA (05:28)
[2018-12-15] MEDS ORDERED: POTASSIUM CHLORIDE (SR) 20 MEQ TAB PO STA (06:19)
[2018-12-15] MEDS ORDERED: ASPIRIN (EC) 325 MG TAB PO ONE (08:00)
[2018-12-15] MEDS ORDERED: ONDANSETRON 4 MG INJ IV PRN (08:00)
[2018-12-15] MEDS ORDERED: ACETAMINOPHEN 325 MG TAB PO PRN (08:00)
[2018-12-15] MEDS ORDERED: GLUCOSE GEL 15 GRAM TUBE BUCCAL PRN (12:30)
[2018-12-15] MEDS ORDERED: GLUCOSE GEL 15 GRAM TUBE PO PRN ×2 (12:30)
[2018-12-15] MEDS ORDERED: GLUCAGON 1 MG INJ IM PRN (12:30)
[2018-12-15] MEDS ORDERED: DEXTROSE 50% 50 ML SYRINGE IV PRN ×2 (12:30)
[2018-12-15] MEDS: GABAPENTIN 300 MG CAP PO SCH ×2 (13:07→21:03)
[2018-12-15] MEDS: PAROXETINE 20 MG TAB PO SCH (13:25)
[2018-12-15] MEDS: ENOXAPARIN 100 MG/ML SYG SC SCH ×2 (13:27→21:02)
[2018-12-15] MEDS ORDERED: LEVALBUTEROL (NEB) 0.63 MG/3 ML AMP HHN SCH (14:00)
[2018-12-15] MEDS ORDERED: LEVALBUTEROL (NEB) 0.63 MG/3 ML AMP HHN PRN (14:00)
[2018-12-15] MEDS ORDERED: ALBUTEROL/IPRATROPIUM (NEB) 3 ML AMP HHN SCH (14:00)
[2018-12-15] MEDS: LORAZEPAM 1 MG TAB PO PRN ×2 (16:34→22:07)
[2018-12-15] MEDS: INSULIN ASPART [NOVOLOG] 3 ML PEN SC SCH ×2 (16:59→21:00)
[2018-12-15] MEDS: ACCU-CHEK XX SCH (17:00)
[2018-12-15] MEDS ORDERED: AMIODARONE 900 MG in DEXTROSE 5% 482 ML IV SCH (17:00)
[2018-12-15] MEDS: LEVALBUTEROL (NEB) 0.63 MG/3 ML AMP HHN SCH (19:32)
[2018-12-15] MEDS: POTASSIUM CHLORIDE (SR) 20 MEQ TAB PO SCH (21:03)
[2018-12-15] MEDS: TAMSULOSIN (SR) 0.4 MG CAP PO SCH (21:03)
[2018-12-15] MEDS: ATORVASTATIN 10 MG TAB PO SCH (21:04)
[2018-12-15] MEDS: DOXAZOSIN 4 MG TAB PO SCH (21:04)
[2018-12-16] VITALS: BP 123/82; PULSE 98; RESP 18
[2018-12-16] MEDS: LEVALBUTEROL (NEB) 0.63 MG/3 ML AMP HHN SCH ×4 (01:18→19:49)
[2018-12-16] MEDS: ACCU-CHEK XX SCH ×4 (02:00→17:25)
[2018-12-16 03:37] VITALS: BP 124/68; PULSE 120; RESP 18
[2018-12-16 07:18] VITALS: BP 149/88; PULSE 70; RESP 18
[2018-12-16] MEDS: INSULIN ASPART [NOVOLOG] 3 ML PEN SC SCH ×5 (08:11→21:00)
[2018-12-16] MEDS: GABAPENTIN 300 MG CAP PO SCH ×3 (08:32→21:52)
[2018-12-16] MEDS: FUROSEMIDE 40 MG TAB PO SCH (08:33)
[2018-12-16] MEDS: AMLODIPINE 10 MG TAB PO SCH (08:33)
[2018-12-16] MEDS: ASPIRIN (EC) 81 MG TAB PO SCH (08:33)
[2018-12-16] MEDS: traZODone 100 MG TAB PO SCH (08:33)
[2018-12-16] MEDS: POTASSIUM CHLORIDE (SR) 20 MEQ TAB PO SCH ×2 (08:34→21:50)
[2018-12-16] MEDS: PAROXETINE 20 MG TAB PO SCH (08:34)
[2018-12-16] MEDS: LORATADINE 10 MG TAB PO SCH (08:34)
[2018-12-16] MEDS: ENOXAPARIN 100 MG/ML SYG SC SCH (08:35)
[2018-12-16 12:12] VITALS: BP 134/65; PULSE 81; RESP 18
[2018-12-16] MEDS ORDERED: FUROSEMIDE 40 MG INJ IV ONE (12:30)
[2018-12-16] MEDS ORDERED: METOPROLOL 5 MG INJ IV PRN (12:30)
[2018-12-16 15:36] VITALS: BP 114/67; PULSE 83; RESP 20
[2018-12-16] MEDS: AMIODARONE 200 MG TAB PO SCH ×2 (17:40→21:52)
[2018-12-16 20:00] VITALS: BP 108/72; PULSE 62; RESP 19
[2018-12-16] MEDS: INSULIN GLARGINE [LANTus] (100 UNITS/ML) SYG SC SCH (20:00)
[2018-12-16] MEDS: TAMSULOSIN (SR) 0.4 MG CAP PO SCH (21:50)
[2018-12-16] MEDS: DOXAZOSIN 4 MG TAB PO SCH (21:51)
[2018-12-16] MEDS: APIXABAN 5 MG TABLET PO SCH (21:52)
[2018-12-16] MEDS: LORAZEPAM 1 MG TAB PO PRN (21:52)
[2018-12-16] MEDS: ATORVASTATIN 10 MG TAB PO SCH (21:52)
[2018-12-17] VITALS (7 sets, daily range): BP systolic 105–138; BP diastolic 63–76; PULSE 59–72; RESP 18–22
[2018-12-17] MEDS: ACCU-CHEK XX SCH ×4 (02:00→16:51)
[2018-12-17] MEDS: LEVALBUTEROL (NEB) 0.63 MG/3 ML AMP HHN SCH ×4 (02:00→20:00)
[2018-12-17] MEDS: INSULIN ASPART [NOVOLOG] 3 ML PEN SC SCH ×7 (07:55→21:00)
[2018-12-17] MEDS: GABAPENTIN 300 MG CAP PO SCH ×3 (08:06→21:11)
[2018-12-17] MEDS: LORATADINE 10 MG TAB PO SCH (08:06)
[2018-12-17] MEDS: FUROSEMIDE 40 MG TAB PO SCH (08:07)
[2018-12-17] MEDS: traZODone 100 MG TAB PO SCH (08:07)
[2018-12-17] MEDS: AMLODIPINE 10 MG TAB PO SCH (08:07)
[2018-12-17] MEDS: ASPIRIN (EC) 81 MG TAB PO SCH (08:07)
[2018-12-17] MEDS: AMIODARONE 200 MG TAB PO SCH ×2 (08:07→21:11)
[2018-12-17] MEDS: POTASSIUM CHLORIDE (SR) 20 MEQ TAB PO SCH ×2 (08:07→21:14)
[2018-12-17] MEDS: APIXABAN 5 MG TABLET PO SCH ×2 (08:07→21:11)
[2018-12-17] MEDS: PAROXETINE 20 MG TAB PO SCH (08:07)
[2018-12-17] MEDS ORDERED: POLYETHYLENE GLYCOL 17 GM PACKET PO PRN (17:00)
[2018-12-17] MEDS: ALBUTEROL/IPRATROPIUM (NEB) 3 ML AMP HHN SCH (19:53)
[2018-12-17] MEDS: DOCUSATE SODIUM 100 MG CAP PO SCH (21:10)
[2018-12-17] MEDS: DOXAZOSIN 4 MG TAB PO SCH (21:10)
[2018-12-17] MEDS: ATORVASTATIN 10 MG TAB PO SCH (21:11)
[2018-12-17] MEDS: TAMSULOSIN (SR) 0.4 MG CAP PO SCH (21:14)
[2018-12-17] MEDS: LORAZEPAM 1 MG TAB PO PRN (21:18)
[2018-12-17] MEDS: INSULIN GLARGINE [LANTus] (100 UNITS/ML) SYG SC SCH (21:35)
[2018-12-18] MEDS: LEVALBUTEROL (NEB) 0.63 MG/3 ML AMP HHN SCH ×3 (01:23→14:00)
[2018-12-18] MEDS: ACCU-CHEK XX SCH ×3 (02:00→11:20)
[2018-12-18 03:56] VITALS: BP 133/72; PULSE 63; RESP 18
[2018-12-18 07:00] VITALS: BP 153/87; PULSE 60; RESP 18
[2018-12-18] MEDS: traZODone 100 MG TAB PO SCH (07:43)
[2018-12-18] MEDS: ALBUTEROL/IPRATROPIUM (NEB) 3 ML AMP HHN SCH ×2 (08:00→14:00)
[2018-12-18] MEDS: INSULIN ASPART [NOVOLOG] 3 ML PEN SC SCH ×4 (08:19→12:52)
[2018-12-18] MEDS: PAROXETINE 20 MG TAB PO SCH (09:49)
[2018-12-18] MEDS: POTASSIUM CHLORIDE (SR) 20 MEQ TAB PO SCH (09:49)
[2018-12-18] MEDS: LORATADINE 10 MG TAB PO SCH (09:49)
[2018-12-18] MEDS: DOCUSATE SODIUM 100 MG CAP PO SCH (09:49)
[2018-12-18] MEDS: ASPIRIN (EC) 81 MG TAB PO SCH (09:49)
[2018-12-18] MEDS: APIXABAN 5 MG TABLET PO SCH (09:49)
[2018-12-18] MEDS: GABAPENTIN 300 MG CAP PO SCH ×3 (09:49→13:11)
[2018-12-18] MEDS: AMLODIPINE 10 MG TAB PO SCH (09:50)
[2018-12-18] MEDS: FUROSEMIDE 40 MG TAB PO SCH (09:50)
[2018-12-18] MEDS: AMIODARONE 200 MG TAB PO SCH (09:50)
[2018-12-18 11:00] VITALS: BP_SYST 123; BP_SYST 154; BP_DIAS 65; BP_DIAS 75; PULSE 52; PULSE 76; RESP 19
[2018-12-18 15:41] VITALS: BP 125/60; PULSE 57; RESP 18
== END 2018-12-18 17:45 | disposition home or self-care (01) | DRG 308 ==
LOC: EDBD 05:27 → E/R 05:27 → TEL 08:01
PROVIDERS: ADMIT Internal Medicine Nephrology; ATTEND Internal Medicine Nephrology
DX: I48.0 Paroxysmal atrial fibrillation (principal); I50.33 Acute on chronic diastolic (congestive) heart failure; I13.0 Hypertensive heart and chronic kidney disease with heart failure and stage 1 through stage 4 chronic kidney disease, or unspecified chronic kidney disease; E11.22 Type 2 diabetes mellitus with diabetic chronic kidney disease; D63.1 Anemia in chronic kidney disease; E66.9 Obesity, unspecified; D63.8 Anemia in other chronic diseases classified elsewhere; J44.9 Chronic obstructive pulmonary disease, unspecified; E87.6 Hypokalemia; N18.9 Chronic kidney disease, unspecified; E78.5 Hyperlipidemia, unspecified; I25.10 Atherosclerotic heart disease of native coronary artery without angina pectoris; K59.00 Constipation, unspecified; Z68.29 Body mass index [BMI] 29.0-29.9, adult; Z79.82 Long term (current) use of aspirin; Z79.4 Long term (current) use of insulin; Z79.01 Long term (current) use of anticoagulants
CPT/HCPCS: 36415; 71045; 80048; 80053; 80061; 82550; 82553; 82962; 83880; 84443; 84484; 85025; 85610; 85730; 93005; 93306; 94640; 94664; 96365; 96366; 96368; 96375; 97116; 97161; J0282; J1650; J1815; J1940; J3475; J7040; J7060